=== PATIENT | male | born 1945 | race Caucasian/White ===

== ENCOUNTER 2021-11-02 18:57 | Emergency (ER) | payer MEDICARE, SELFPAY ==
[2021-11-02 19:25] VITALS: BP 139/65; PULSE 109; RESP 20; TEMP 36.6; O2SAT 99
--- NOTE | 2021-11-02 19:50 | ED.SKABFB ---
HPI - Skin/Abscess/Foreign Bdy General Chief complaint: Skin/Abscess/Foreign Body Stated complaint: cut on leg Source: patient Mode of arrival: ambulatory Limitations: no limitations History of Present Illness HPI narrative: this is a 76-year-old gentleman presents with laceration to the left lateral lower extremity approximately 4cm in length mildly gaping not up-to-date with his tetanus, currently there is no numbness or tingling to his leg has good range of motion no fever or chills. complaint: laceration Onset (ago): hour(s) Tetanus up to date: no Location: LLE Severity: mild Related Data Home Medications Medication Instructions Recorded Confirmed aspirin 81 mg tablet 81 mg PO DAILY 11/02/21 11/02/21 Allergies Allergy/AdvReac Type Severity Reaction Status Date / Time No Known Allergies Allergy Verified 11/02/21 19:29 Review of Systems Review of Systems: All systems reviewed & are unremarkable except as noted in HPI and below PMFSH Past Medical History Medical History Patient denies medical problems Exam Const: General: healthy appearing and no acute distress Limitations: no limitations HENMT: Head: normal to inspection Face and sinus: normal facial exam Eyes: Conjunctivae: conjunctivae normal Pupils: Equal, round and reactive pupils present Chest: Chest palpation & inspection: normal inspection of the chest Resp: Effort & Inspection: normal respiratory effort Auscultation: clear to auscultation bilaterally Cardio: Rate: regular rate Rhythm: regular rhythm GI: GI Palp: Yes Soft to palpation Auscultation: normal bowel sounds Skin: General skin exam: normal color Wounds: wounds noted Neuro: General: patient oriented x3 and moves all extremities Extrem: General: normal to inspection Psych: Mental Status: mental status grossly normal Course Course Emergency Course: patient with laceration left lateral lower leg 4 titi placed and the area currently is a well-approximated not bleeding and patient updated with his tetanus. Vital Signs Vital signs: Vital Signs Temperature 36.6 C 11/02/21 19:25 Pulse Rate 109 H 11/02/21 19:25 Respiratory Rate 20 11/02/21 19:25 Blood Pressure 139/65 11/02/21 19:25 Pulse Oximetry 99 11/02/21 19:25 Oxygen Delivery Room Air 11/02/21 19:25 Temperature 36.6 C 11/02/21 19:25 Pulse Rate 109 H 11/02/21 19:25 Respiratory Rate 20 11/02/21 19:25 Blood Pressure 139/65 11/02/21 19:25 Pulse Oximetry 99 11/02/21 19:25 Oxygen Delivery Room Air 11/02/21 19:25 Procedures Laceration Laceration 1: Date: 11/02/21 Time: 19:53 Site: lower extremity Side (If applicable): left Size (cm): 4 Description: linear Depth: simple, single layer Pre-repair: irrigated and irrigated extensively ====== Skin Level ====== Skin layer closed with: titi ====== Subcutaneous Layer ====== ====== Muscle Layer ====== ====== Tendon Layer ====== Critical Care Time Critical Care Time Critical Care Time: No Discharge Plan Discharge Clinical Impression: Laceration Patient Disposition: Home, Self-Care Condition: Stable Instructions: Antibiotic Form, Laceration (ED) Additional Instructions: place Neosporin on affected area daily x3 days, and follow up with primary care physician in 1 week for staple removal. Prescriptions: No Action Adult Aspirin 81 mg Tablet 81 mg PO DAILY Follow-up/Referrals: Guanakito,Joe David MD [Primary Care Provider] - Time of Disposition: 19:54
[2021-11-02] MEDS: TETANUS,DIPHTHERIA,AC PERTUSSIS ADULT 0.5 ML (ADACEL) IM (19:54)
[2021-11-02 20:00] VITALS: BP 121/64; PULSE 89; RESP 16; O2SAT 97
--- NOTE | 2021-11-02 20:01 | PC.NURSE ---
staple site covered with triple antibiotic, non adheart dressing and wrapped in coban per
== END 2021-11-02 20:01 | disposition home or self-care (01) ==
PROVIDERS: Emergency Provider Emergency Medicine; PCP Internal Medicine
DX: S81.812A Laceration without foreign body, left lower leg, initial encounter (principal); W45.8XXA Other foreign body or object entering through skin, initial encounter
CPT/HCPCS: 12002; 90471; 90715; 99282

== ENCOUNTER 2024-08-12 04:11 | Observation (INO) | payer MEDICARE, BC, SELFPAY ==
[2024-08-12] VITALS (22 sets, daily range): BP systolic 122–165; BP diastolic 80–113; PULSE 79–98; RESP 14–24; TEMP 36.2–36.6; O2SAT 92–100; BMI 36.2
--- NOTE | ~2024-08-12 | CT_ITS ---
CT Scan of the Chest without Contrast: Clinical Indication: Shortness of breath Technique: Contiguous sections were acquired throughout the chest without intravenous contrast. Dose reduction technique was used on this scan by utilizing automated exposure control and iterative recon struction technique. The dose-length product (DLP) was 846.49 mGy-cm. Findings: There is no evidence of any significant mediastinal, hilar or axillary lymphadenopathy. Extensive cor onary artery calcifications are present. Minimal pericardial fluid noted. No pleural effusions. Several scattered calcified granulomas are present. There is chronic scarring or atelectasis at the l ing[place]. Moderate emphysema. Images through the upper abdomen reveal left adrenal adenoma. Lipoma is present subjacent to the left scapula. Degenerative spondylosis of the spine noted. Impression: Moderate emphysema. Chronic scarring or atelectasis at the lingula.. Minimal pericardial fluid. Reviewed, dictated and finalized at [facility]. Impression: Moderate emphysema. Chronic scarring or atelectasis at the lingula.. Minimal pericardial fluid.
--- NOTE | ~2024-08-12 | XR_ITS ---
Portable chest x-ray Comparison: None Clinical History: Shortness of breath Findings: Lungs are clear, without focal consolidation or pleural effusion. Cardiomediastinal silho uette is mildly prominent, possibly due to AP technique. Bones and soft tissues are unremarkable. Impression: Clear lungs. Reviewed, dictated and finalized at location . Impression: Clear lungs.
--- OUTSIDE RECORDS SUMMARY | 2024-08-12 04:13 | XMS_ITS | Encounter Summary ---
Author Organization [facility] Address [address] [place] [address] Phone Care Team Providers Care Marine Specialist Name Role Phone Joe Calabrese MD Primary Care Provider [phone] Danae Roberts October PAC Unavailable [phone] Babak Taveras MD Unavailable [phone] Ellen Taveras CORPORATE LEGAL ASSISTANT, QUALITY CONTROLLER Unavailable + [phone] Haider Jimenez MD Unavailable [phone] Ellen Taveras CORPORATE LEGAL ASSISTANT, QUALITY CONTROLLER Unavailable + [phone] Encounter Details Date Type Department Care Team (Late st Contact Info) Description 06/25/2024 Results Follow-Up [facility] - Internal Medicine [facility] [address] [place] [address] Joe Calabrese MD [address] [facility] [place] [place] [address] Social History Tobacco Use Types Packs/Day Years Used Date Smoking Tobacco: Former Cigarettes 2 30 0 10/17/1969 - 10/18/1999 Passive Smoke Exposure: Past Smokeless Tobacco: Never Alcohol Use Standard Drinks/Week Comments Not Currently 0 (1 standard drink = 0.6 oz pur e alcohol) [facility] Utilities Answer Date Recorded In the past 12 months has [employer] electric, gas, oil, or water company threatened to shut off services in your home? No 02/13/2024 Social Connection and Isolation Panel [NHANES] A nswer Date Recorded In a typical week, how many times do you talk on the phone with family, friends, or neighbors? Once a week 02/13/2024 How often do you get together with friends or re latives? Once a week 02/13/2024 Attends Jain Services Not on file 02/12 Active Member of Clubs or Organizations Not on f ile 02/13/2024 Attends Club or Organization Meetings Not on pattie e 02/13/2024 Marital Status Not on file 02/13/2024 AUDIT-C Answer Date Recorded Q1: How often do you have a drink containing alcohol? Never 02/13/2024 Q2: How many drinks containi ng alcohol do you have on a typical day when you are drinking? Patient does not drink Frequency of Binge Drinking Not on file 07/2023 Overall Financial Resource Strain (CARDIA) Answe r Date Recorded How hard is it for you to pa y for the very basics like food, housing, medical care, and heating? Not very hard 02/13/2024 PHQ-2 Answer Date Recorded Total Score - Questions 1-9 0 01/2025 [facility] of Occupat ional Health - Occupational Stress Questionnaire Answer Date Recorded Do you feel stress - tense, restless, nervous, or anxious, or unable to sleep at night because your mind is troubled all the time - these days? Only a little 02/13/2024 Exercise Vital Sign Answer Date Recorde d On average, how many days pe r week do you engage in moderate to strenuous exercise (like a brisk walk)? 1 day 02/13/2024 On average, how many minutes do you engage in exercise at this level? 10 min 02/13/2024 Hunger Vital Sign Answer Date Recorded Within the past 12 months, y ou worried that your food would run out before you got the money to buy more. Never true 02/13/20 24 Within the past 12 months, t he food you bought just didn't last and you didn't have money to get more. Never true 02/13/2024 PRAPARE - Transportation Answer Date Re corded In the past 12 months, has l ack of transportation kept you from medical appointments or from getting medications? No 07/2023 In the past 12 months, has l ack of transportation kept you from meetings, work, or from getting things needed for daily living? No 02/13/2024 Housing Stability Vital Sign Answer Robert e Recorded In the last 12 months, was t here a time when you were not able to pay the mortgage or rent on time? No 07/25/2023 In the last 12 months, how many places have you lived? 2 07/25/2023 In the last 12 months, was t here a time when you did not have a steady place to sleep or slept in a fdc (including now)? No 07/25/2023 Housing Stability Vital Sign Answer Robert e Recorded In the last 12 months, was t here a time when you were not able to pay the mortgage or rent on time? No 02/13/2024 Number of Times Moved in the Last Year Not on fi le 02/13/2024 At any time in the past 12 m ont, were you homeless or living in a fdc (including now)? No 02/13/2024 Sexually Active Control Partners Comments Not Currently Sex and Gender Information Value Date Recorded Sex Assigned at Not on file Legal Sex Male 10:00 PM CDT Gender Identity Not on file Sexual Orientation Not on file documented as of this encounter Plan of Treatment Upcoming Encounters Date Type Department Care Team (Late st Contact Info) Description 08/20/2024 2:45 PM CDT Office Visit [facility] - Internal Medicine [facility] [address] [place] [address] Joe Calabrese MD [address] [place] [address] 09/08/2024 1:30 PM CDT Office [facility] - Cardiology - [place] [address] [place] [id number] Ellen Taveras APRN, QUALITY CONTROLLER [address]2 [facility], [address] [place] [address] documented as of this encounter Visit Diagnoses Not on filedocumented in this encounter Additional Health Concerns Assessment Noted Time PHQ-9 Depression Total Score: 0 05/21/19 25 1:34 PM TABLE RUNNER documented as of this encounter Care Teams Marine Specialist Relationship Specialty Start Date End Date Joe Calabrese MD [address] [place] [address] PCP - General Internal Medicine 04/22/15 Danae Roberts [facility] [address] [facility] [place] [address] Physician Telegraph Service Clerk Physician Telegraph Service Clerk 09/04/21 Babak Taveras MD #[address] [address] Consulting Physician Interventional Cardiology 03/01/23 Ellen Taveras APRN, QUALITY CONTROLLER #2 [facility], [address] [address] Inspector Balance Bridge Advanced Practice Nurse 03/14/23 Haider Jimenez MD [address] [place] [address] Consulting Physician Gastroenterology 06/21/22 Ellen Taveras APRN, QUALITY CONTROLLER #2 [facility], [address] [address] Nurse Practitioner Cardiology 12/31/23 documented as of this encounter
--- OUTSIDE RECORDS SUMMARY | 2024-08-12 04:13 | XMS_ITS | Encounter Summary ---
Author Organization [facility] Address [address] [place] [address] Phone Care Team Providers Care Crane Chaser Name Role Phone Joe Calabrese MD Primary Care Provider [phone] Danae Roberts October PAC Unavailable [phone] Gonzalo Villalpando MD Unavailable Babak Powers MD Unavailable [phone] Ellen Taveras APRN, ENTRY LEVEL ELECTRICIAN Unavailable + [phone] Haider Jimenez MD Unavailable [phone] Ellen Taveras APRN, ENTRY LEVEL ELECTRICIAN Unavailable + [phone] Reason for Visit * Reason Comments Medication Refill Encounter Details Date Type Department Care Team (Late st Contact Info) Description 04/17/2020 Refill [facility] - Internal Medicine [facility] [address] [place] [address] Joe Calabrese MD [address] [facility] [place] [address] Medication Refill Social History Tobacco Use Types Packs/Day Years Used Date Smoking Tobacco: Former Cigarettes Q uit: 10/18/1999 Smokeless Tobacco: Never PHQ-2 Answer Date Recorded PHQ-2 Score 0 02/17/2020 Sex and Gender Information Value Date Recorded Sex Assigned at Not on file Legal Sex Male 10:00 PM CDT Gender Identity Not on file Sexual Orientation Not on file documented as of this encounter Miscellaneous Notes * Telephone Encounter - Gissel Roberson RN - 04/18/2020 7:36 AM CST Please review and sign. EY PARTY CHIEF documented in this encounter Plan of Treatment Upcoming Encounters Date Type Department Care Team (Late st Contact Info) Description 08/20/2024 2:45 PM CDT Office Visit [facility] Medical [facility] - Internal Medicine [place] [address] [place] [address] Joe Calabrese MD [address] [place] [address] 09/08/2024 1:30 PM CDT Office Visit [facility] - Cardiology - [place] [address] [place] [address] Ellen Taveras APRN, ENTRY LEVEL ELECTRICIAN #2 [facility], [address] [place] [address] documented as of this encounter Visit Diagnoses Not on filedocumented in this encounter Additional Health Concerns Assessment Noted Time PHQ-9 Depression Total Score: 0 02/17/20 20 11:00 AM CDT documented as of this encounter Care Teams Crane Chaser Relationship Specialty Start Date End Date Joe Calabrese MD [address] [place] [address] PCP - General Internal Medicine 04/22/15 Danae Roberts, XIOMARA [address] [place] [address] Physician Freedom Of Information Officer Physician Freedom Of Information Officer 09/04/21 Gonzalo Villalpando MD [address] [place] [address] Consulting Physician Cardiovascular Disease - Cardiology 02/19/23 04/19/24 Babak Taveras MD #2 [facility] [address] [place] [address] Consulting Physician Interventional Cardiology 03/01/23 Ellen Taveras APRN, ENTRY LEVEL ELECTRICIAN #2 [facility], [address] [place] [address] Crown Blocker Advanced Practice Nurse 03/14/23 Haider Jimenez MD [address] [place] [address] Consulting Physician Gastroenterology 06/21/22 Ellen Taveras APRN, ENTRY LEVEL ELECTRICIAN #2 [facility], [address] [place] [address] Nurse Practitioner Cardiology 12/31/23 documented as of this encounter
--- OUTSIDE RECORDS SUMMARY | 2024-08-12 04:13 | XMS_ITS | Encounter Summary ---
Author Organization [facility] Address [address] [place] [address] Phone Care Team Providers Care Water Filter Cleaner Name Role Phone Joe Calabrese MD Primary Care Provider [phone] Danae Roberts October PAC Unavailable [phone] Gonzalo Villalpando MD Unavailable Babka Powers MD Unavailable [phone] Ellen Taveras APRN, DIRT SHOVELER Unavailable + [phone] Haider Jimenez MD Unavailable [phone] Ellen Taveras APRN, DIRT SHOVELER Unavailable + [phone] Reason for Visit * Reason Comments Medication Refill Encounter Details Date Type Department Care Team (Late st Contact Info) Description 08/11/2020 Refill [facility] - Internal Medicine - [place] [address] [place] [address] Joe Calabrese MD [address] [facility] [address] Medication Refill Social History Tobacco Use Types Packs/Day Years Used Date Smoking Tobacco: Former Cigarettes Q uit: 10/18/1999 Smokeless Tobacco: Never PHQ-2 Answer Date Recorded Total Score - Questions 1-9 0 10/2020 Sex and Gender Information Value Date Recorded Sex Assigned at Not on file Legal Sex Male 10:00 PM CDT Gender Identity Not on file Sexual Orientation Not on file COVID-19 Exposure Response Date Recorded In the last month, have you been in contact with someone who was confirmed or suspected to have Coronavirus / COVID-19? No / Unsure 08/10/2020 10:52 AM CDT documented as of this encounter Plan of Treatment Upcoming Encounters Date Type Department Care Team (Late st Contact Info) Description 08/20/2024 2:45 PM CDT Office Visit [facility] - Internal Medicine [place] [address] [place] [address] Joe Calabrese MD [address] [place] [address] 09/08/2024 1:30 PM CDT Office Visit [facility] - Cardiology - [place] [address] [place] [address] Ellen Taveras APRN, DIRT SHOVELER #2 [facility], [address] [place] [address] documented as of this encounter Visit Diagnoses Not on filedocumented in this encounter Additional Health Concerns Assessment Noted Time PHQ-9 Depression Total Score: 0 05/18/19 21 10:00 AM CASING RUNNING MACHINE TENDER documented as of this encounter Care Teams Water Filter Cleaner Relationship Specialty Start Date End Date Joe Calabrese MD [address] [place] [address] PCP - General Internal Medicine 04/22/15 Danae Roberts Angella, PAC [address] [place] [address] Physician Commander Internal Affairs Physician Commander Internal Affairs 09/04/21 Gonzalo Villalpando MD [address] [place] [address] Consulting Physician Cardiovascular Disease - Cardiology 02/19/23 04/19/24 Babak Taveras MD #2 [facility] [address] [place] [address] Consulting Physician Interventional Cardiology 03/01/23 Ellen Taveras APRN, DIRT SHOVELER #2 [facility], [address] [place] [address] Diversional Therapist Advanced Practice Nurse 03/14/23 Haider Jimenez MD [address] [place] [address] Consulting Physician Gastroenterology 06/21/22 Ellen Taveras APRN, DIRT SHOVELER #2 [facility], [address] [place] [address] Nurse Practitioner Cardiology 12/31/23 documented as of this encounter
--- OUTSIDE RECORDS SUMMARY | 2024-08-12 04:13 | XMS_ITS | Encounter Summary ---
Author Organization [facility] Address [address] [place] [address] Phone Care Team Providers Care Gas Utility Worker Name Role Phone Joe Calabrese MD Primary Care Provider [phone] Armando Danae October PAC Unavailable [phone] Gonzalo Villalpando MD Unavailable Babak Powers MD Unavailable [phone] Ellen Taveras APRN, DISTRICT COMMERCIAL SUPERINTENDENT Unavailable + [phone] Haider Jimenez MD Unavailable [phone] Ellen Taveras APRN, DISTRICT COMMERCIAL SUPERINTENDENT Unavailable + [phone] Reason for Visit * Reason Comments Medication Refill Encounter Details Date Type Department Care Team ([facility] st Contact Info) Description 02/23/2023 Refill [facility] - Internal Medicine - [place] [address] [place] [address] Joe Calabrese MD [address] [facility] [place] [address] Medication Refill Social History Tobacco Use Types Packs/Day Years Used Date Smoking Tobacco: Former Cigarettes 2 30 0 10/17/1969 - 10/18/1999 Passive Smoke Exposure: Past Smokeless Tobacco: Never Alcohol Use Standard Drinks/Week Comments Not Currently 0 (1 standard drink = 0.6 oz pur e alcohol) PHQ-2 Answer Date Recorded Total Score - Questions 1-9 0 06/13 Sexually Active Control Partners Comments Not Currently Sex and Gender Information Value Date Recorded Sex Assigned at Not on file Legal Sex Male 10:00 PM CDT Gender Identity Not on file Sexual Orientation Not on file COVID-19 Exposure Response Date Recorded In the last 10 days, have yo u been in contact with someone who was confirmed or suspected to have Coronavirus/COVID-19? No / Unsure 01/24/2023 1:44 PM CDT documented as of this encounter Miscellaneous Notes * Telephone Encounter - Niesha Ruby RN - 02/25/2023 8:37 AM CDT Medication failed the protocol, provider to review and approve the medication order if appropriate. Requested Prescriptions Pending Prescriptions Disp Refills gabapentin (NEURONTIN) 300 MG Capsule [Pharmacy Med Name: GABAPENTIN CAPS 300MG] 360 Capsule 3 Sig: TAKE 1 CAPSULE FOUR TIMES A DAY Not Delegated - Anticonvulsants Excluding Benzodiazepines Protocol Failed - 02/23/2023 10:33 AM Failed - This refill cannot be delegated Passed - Visit with relevant provider in past 12 months or upcoming 90 days Recent Visits Date Type Provider Dept 01/24/23 Office Visit Joe Calabrese MD [facility] 10/18/22 Office Visit Joe Calabrese MD [facility] 07/12/22 Office Visit Joe Calabrese MD [facility] [place] 04/11/22 Office Visit Joe Calabrese MD [facility] [place] [facility] recent visits within past 365 days and meeting all other requirements Future Appointments Date Type Provider Dept 04/25/23 Appointment Joe Calabrese MD [facility] [place] [facility] future appointments within next 90 days and meeting all other requirements documented in this encounter Plan of Treatment Upcoming Encounters Date Type Department Care Team (Late st Contact Info) Description 08/20/2024 2:45 PM CDT Office Visit [facility] - Internal Medicine - [place] [address] [place] [address] Joe Calabrese MD [address] [place] [address] 09/08/2024 1:30 PM CDT Office Visit [facility] - Cardiology [facility] [address] [place] [address] Ellen Taveras APRN, DISTRICT COMMERCIAL SUPERINTENDENT #2 [facility], [address] [place] [address] documented as of this encounter Visit Diagnoses Not on filedocumented in this encounter Additional Health Concerns Assessment Noted Time PHQ-9 Depression Total Score: 0 05/18/19 21 10:00 AM MACHINE ADJUSTER LEADER CASE TRIM documented as of this encounter Care Teams Gas Utility Worker Relationship Specialty Start Date End Date Joe Calabrese MD [address] [place] [address] PCP - General Internal Medicine 04/22/15 [facility] [address] [place] [address] Physician Strawhat Blocking Operator Physician Strawhat Blocking Operator 09/04/21 Gonzalo Villalpando MD [address] [place] [address] Consulting Physician Cardiovascular Disease - Cardiology 02/19/23 04/19/24 Babak Taveras MD #2 [facility] [address] [place] [address] Consulting Physician Interventional Cardiology 03/01/23 Ellen Taveras APRN, DISTRICT COMMERCIAL SUPERINTENDENT #2 [facility] [place] [facility], [address] [address] Road Freight Conductor Advanced Practice Nurse 03/14/23 Haider Jimenez MD #[address] [place] [address] Consulting Physician Gastroenterology 06/21/22 Ellen Taveras APRN, DISTRICT COMMERCIAL SUPERINTENDENT #[address] [facility], [address] [place] [address] Nurse Practitioner Cardiology 12/31/23 documented as of this encounter
--- OUTSIDE RECORDS SUMMARY | 2024-08-12 04:13 | XMS_ITS | Encounter Summary ---
Author Organization [facility] Address [address] [place] [address] Phone Care Team Providers Care Block Cuber Name Role Phone Joe Calabrese MD Primary Care Provider [phone] Armando Danae October PAC Unavailable [phone] Gonzalo Villalpando MD Unavailable Babak Powers MD Unavailable [phone] Ellen Taveras APRN, RAZOR GRINDER Unavailable + [phone] Haider Jimenez MD Unavailable [phone] Ellen Taveras APRN, RAZOR GRINDER Unavailable + [phone] Reason for Visit * Reason Comments Medication Refill Encounter Details Date Type Department Care Team (Late st Contact Info) Description 09/09/2023 Refill [facility] Group - Internal Medicine - [place] [address] [place] [id number] Joe Calabrese MD [address] [place] [address] Medication Refill Social History Tobacco Use Types Packs/Day Years Used Date Smoking Tobacco: Former Cigarettes 2 30 0 10/17/1969 - 10/18/1999 Passive Smoke Exposure: Past Smokeless Tobacco: Never Alcohol Use Standard Drinks/Week Comments Not Currently 0 (1 standard drink = 0.6 oz pur e alcohol) [facility] Utilities Answer Date Recorded In the past 12 months has [employer], gas, oil, or water company threatened to shut off services in your home? No 07/25/2023 Social Connection and Isolat ion Panel [NHANES] Answer Date Recorded In a typical week, how many times do you talk on the phone with family, friends, or neighbors? More than three times a week 07/25/2023 How often do you get togethe r with friends or relatives? More than three times a week 07/25/2023 How often do you attend chur ch or adventism services? Never 07/25/2023 Do you belong to any clubs o r organizations such as cheondoism groups, unions, fraternal or athletic groups, or school groups? No 07/25/2023 How often do you attend meet ings of the clubs or organizations you belong to? Never 07/25/2023 Are you , , di vorced, , never , or living with a partner? 07/25/2023 AUDIT-C Answer Date Recorded Q1: How often do you have a drink containing alcohol? Never 07/25/2023 Q2: How many drinks containi ng alcohol do you have on a typical day when you are drinking? Patient does not drink Q3: How often do you have si x or more drinks on one occasion? Never 07/25/2023 Overall Financial Resource Strain (CARDIA) Answe r Date Recorded How hard is it for you to pa y for the very basics like food, housing, medical care, and heating? Not hard at all 07/25/2023 PHQ-2 Answer Date Recorded Total Score - Questions 1-9 0 07/11 [facility]ational Stress Questionnaire Answer Date Recorded Do you feel stress - tense, restless, nervous, or anxious, or unable to sleep at night because your mind is troubled all the time - these days? Not at all 07/25/2023 Exercise Vital Sign Answer Date Recorde d On average, how many days pe r week do you engage in moderate to strenuous exercise (like a brisk walk)? 0 days 07/25/2023 On average, how many minutes do you engage in exercise at this level? 0 min 07/25/2023 Hunger Vital Sign Answer Date Recorded Within the past 12 months, y ou worried that your food would run out before you got the money to buy more. Never true 07/25/19 24 Within the past 12 months, t he food you bought just didn't last and you didn't have money to get more. Never true 07/25/2023 PRAPARE - Transportation Answer Date Re corded In the past 12 months, has l ack of transportation kept you from medical appointments or from getting medications? No 07/11 In the past 12 months, has l ack of transportation kept you from meetings, work, or from getting things needed for daily living? No 07/25/2023 Housing Stability Vital Sign Answer [...] place to sleep or slept in a longterm (including now)? No 07/25/2023 Sexually Active Control Partners Comments Not Currently Sex and Gender Information Value Date Recorded Sex Assigned at Not on file Legal Sex Male 10:00 PM CDT Gender Identity Not on file Sexual Orientation Not on file documented as of this encounter Miscellaneous Notes * Telephone Encounter - Joe Calabrese MD - 09/10/2023 11:30 AM CDT Pt is on Omeprazole 40mg once a day * Telephone Encounter - Niesha Ruby RN - 09/10/2023 9:41 AM CDT Per nursing clinical judgement, provider to review and approve the medication(s) order(s) if appropriate. Requested Prescriptions Pending Prescriptions Disp Refills omeprazole (PriLOSEC) 20 MG CAPSULE DELAYED RELEASE [Pharmacy Med Name: OMEPRAZOLE DR CAPS 20MG] 180 Capsule 3 Sig: TAKE 1 CAPSULE IN THE MORNING AND AT BEDTIME (DOSE CHANGE) Proton Pump Inhibitors Protocol Passed - 09/09/2023 4:26 PM Passed - Visit with relevant provider in past 12 months or upcoming 90 days Recent Visits Date Type Provider Dept 07/25/23 Office Visit Joe Calabrese MD [facility] [place] 04/25/23 Office Visit Joe Calabrese MD [facility] [place] 01/24/23 Office Visit Joe Calabrese MD [facility] [place] 10/18/22 Office Visit Joe Calabrese MD [facility] [place] Showing recent visits within past 365 days and meeting all other requirements Future Appointments Date Type Provider Dept 10/31/23 Appointment Joe Calabrese MD [facility] [place] Showing future appointments within next 90 days and meeting all other requirements documented in this encounter Plan of Treatment Upcoming Encounters Date Type Department Care Team (Late st Contact Info) Description 08/20/2024 2:45 PM CDT Office Visit [facility] - Internal Medicine [facility] [address] [place] [address] Joe Calabrese MD [address] [place] [address] 09/08/2024 1:30 PM CDT Office Visit [facility] Medical [facility] - Cardiology [facility] [address] [place] [address] Ellen Taveras APRN, RAZOR GRINDER [address]2 [facility], [address] [place] [address] documented as of this encounter Visit Diagnoses Not on filedocumented in this encounter Additional Health Concerns Assessment Noted Time PHQ-9 Depression Total Score: 0 07/25/19 1:49 PM CDT documented as of this encounter Care Teams Block Cuber Relationship Specialty Start Date End Date Joe Calabrese MD [address] [place] [address] PCP - General Internal Medicine 04/22/15 Danae Roberts Angella, [facility] [address] [address] Physician Religious Assistant Physician Religious Assistant 09/04/21 Gonzalo Villalpando MD [address] [place] [address] Consulting Physician Cardiovascular Disease - Cardiology 02/19/23 04/19/24 Babak Taveras MD #2 [facility] [address] [place] [address] Consulting Physician Interventional Cardiology 03/01/23 Ellen Taveras APRN, RAZOR GRINDER #2 [facility] [address] [place] [address] Tool Supervisor Advanced Practice Nurse 03/14/23 Haider Jimenez MD [address] [place] [address] Consulting Physician Gastroenterology 06/21/22 Ellen Taveras APRN, RAZOR GRINDER #2 [facility], [address] [place] [address] Nurse Practitioner Cardiology 12/31/23 documented as of this encounter
--- OUTSIDE RECORDS SUMMARY | 2024-08-12 04:13 | XMS_ITS | Encounter Summary ---
Author Organization [facility] Address [address] [place] [address] Phone Care Team Providers Care Business Services Intern Name Role Phone Joe Calabrese MD Primary Care Provider [phone] Danae Roberts October PAC Unavailable [phone] Gonzalo Villalpando MD Unavailable Babak Powers MD Unavailable [phone] Ellen Taveras APRN, CARGO ROUTER Unavailable + [phone] Haider Jimenez MD Unavailable [phone] Ellen Taveras APRN, CARGO ROUTER Unavailable + [phone] Reason for Visit * Reason Comments Medication Refill Encounter Details Date Type Department Care Team ([facility] st Contact Info) Description 02/16/2020 Refill [facility] Medical Group - Internal Medicine - [place] [address] [place] [phone] Joe Calabrese MD [address] [facility] [place] [address] Medication Refill Social History Tobacco Use Types Packs/Day Years Used Date Smoking Tobacco: Never Assessed PHQ-2 Answer Date Recorded PHQ-2 Score 0 [...] have Coronavirus / COVID-19? No / Unsure 02/17/2020 10:54 AM CDT documented as of this encounter Miscellaneous Notes * Telephone Encounter - Jannette Mancini RN - 02/17/2020 8:48 AM CDT Pended Rx request to PCP. documented in this encounter Plan of Treatment Upcoming Encounters Date Type Department Care Team (Late st Contact Info) Description 08/20/2024 2:45 PM CDT Office Visit [facility] Medical [facility] - Internal Medicine [facility] [address] [place] [id number] Joe Calabrese MD [address] [place] [address] 09/08/2024 1:30 PM CDT Office Visit [facility] Medical [facility] - Cardiology - [place] [address] [place] [address] Ellen Taveras APRN, CARGO ROUTER [address]2 [facility] [address] [place] [address] documented as of this encounter Visit Diagnoses Not on filedocumented in this encounter Care Teams Business Services Intern Relationship Specialty Start Date End Date Joe Calabrese MD [address] [place] [address] PCP - General Internal Medicine 04/22/15 Danae Roberts Angella, PAC [address] [place] [address] Physician Level Glass Vial Filler Physician Level Glass Vial Filler 09/04/21 Gonzalo Villalpando MD [address] [place] [address] Consulting Physician Cardiovascular Disease - Cardiology 02/19/23 04/19/24 Babak Taveras MD [address] [facility] [address] [place] [address] Consulting Physician Interventional Cardiology 03/01/23 Ellen Taveras APRN, CARGO ROUTER [address]2 [facility], [address] [place] [address] Agriculture Consultant Advanced Practice Nurse 03/14/23 Haider Jimenez MD [address] [place] [address] Consulting Physician Gastroenterology 06/21/22 Ellen Taveras APRN, CARGO ROUTER [address]2 [facility], [address] [place] [address] Nurse Practitioner Cardiology 12/31/23 documented as of this encounter
--- OUTSIDE RECORDS SUMMARY | 2024-08-12 04:13 | XMS_ITS | Encounter Summary ---
Author Organization [facility] Address [address] [place] [address] Phone Care Team Providers Care Early Education Teacher Name Role Phone Joe Calabrese MD Primary Care Provider [phone] Armando Danae October PAC Unavailable [phone] Gonzalo Villalpando MD Unavailable Babak Powers MD Unavailable [phone] Ellen Taveras APRN, PROFILE STITCHING MACHINE OPERATOR Unavailable + [phone] Haider Jimenez MD Unavailable [phone] Ellen Taveras APRN, PROFILE STITCHING MACHINE OPERATOR Unavailable + [phone] Reason for Visit * Reason Comments Medication Refill Encounter Details Date Type Department Care Team ([facility] st Contact Info) Description 02/28/2021 Refill [facility] Medical Group - Internal Medicine - [place] [address] [place] [address] Joe Calabrese MD [address] [place] [address] Medication Refill Social History Tobacco Use Types Packs/Day Years Used Date Smoking Tobacco: Former Cigarettes 2 30 0 10/17/1969 - 10/18/1999 Smokeless Tobacco: Never Alcohol Use Standard Drinks/Week Comments Not Currently 0 (1 standard drink = 0.6 oz pur e alcohol) PHQ-2 Answer Date Recorded Total Score - Questions 1-9 0 10/2020 Sexually Active Control Partners Comments Not Currently Sex and Gender Information Value Date Recorded Sex Assigned at Not on file Legal Sex Male 10:00 PM CDT Gender Identity Not on file Sexual Orientation Not on file documented as of this encounter Plan of Treatment Upcoming Encounters Date Type Department Care Team (Late st Contact Info) Description 08/20/2024 2:45 PM CDT Office Visit [facility] Medical Group - Internal Medicine [place] [address] [place] [address] Joe Calabrese MD [address] [place] [address] 09/08/2024 1:30 PM CDT Office Visit [facility] Cardiology [facility] [address] [place] [address] Ellen Taveras APRN, PROFILE STITCHING MACHINE OPERATOR #2 [facility] [address] [place] [address] documented as of this encounter Visit Diagnoses Not on filedocumented in this encounter Additional Health Concerns Assessment Noted Time PHQ-9 Depression Total Score: 0 05/18/19 21 10:00 AM FLOOR TECHNICIAN documented as of this encounter Care Teams Early Education Teacher Relationship Specialty Start Date End Date Joe Calabrese MD [address] [place] [address] PCP - General Internal Medicine 04/22/15 Danae Roberts Angella, [facility] [address] [place] [address] Physician Industrial Sewer Physician Industrial Sewer 09/04/21 Gonzalo Villalpando MD [address] [place] [address] Consulting Physician Cardiovascular Disease - Cardiology 02/19/23 04/19/24 Babak Taveras MD #2 [facility] [address] [place] [address] Consulting Physician Interventional Cardiology 03/01/23 Ellen Taveras APRN, PROFILE STITCHING MACHINE OPERATOR #2 [facility], [address] [place] [address] Roving Sizer Advanced Practice Nurse 03/14/23 Haider Jimenez MD [address] [place] [address] Consulting Physician Gastroenterology 06/21/22 Ellen Taveras APRN, PROFILE STITCHING MACHINE OPERATOR #2 [facility], [address] [place] [address] Nurse Practitioner Cardiology 12/31/23 documented as of this encounter
--- OUTSIDE RECORDS SUMMARY | 2024-08-12 04:13 | XMS_ITS | Clinical Summary ---
Author Organization [facility] Address [address] [place] [address] Phone Care Team Providers Care Contract Project Manager Name Role Phone Joe Calabrese MD Primary Care Provider Danae Roberts October PAC Unavailable [phone] Babak Taveras MD Unavailable [phone] Ellen Taveras PLASTIC FINISHER, FLIGHT LINE MECHANIC Unavailable + [phone] Haider Jimenez MD Unavailable [phone] Ellen Taveras PLASTIC FINISHER, FLIGHT LINE MECHANIC Unavailable + [phone] Allergies Active Allergy Reactions Criticality Noted Date Comments Duloxetine Rash 06/08/2019 Cymbalta Medications Multiple Vitamin (MULTI-VITAMIN PO) Take by mouth daily. Active sucralfate (CARAFATE) 1 GM/10ML Suspension 11/27/19 23 Active pravastatin (PRAVACHOL) 40 MG Tablet TAKE 1 TABLET NIGHTLY 90 Tablet 3 09/24/19 24 Active Contour Test StripIndications :Type 2 diabetes mellitus with complication, without long-term current use of insulin (HCC) Use once a day as directed. DX E11.9 Type 2 DM non insulin dep 100 Strip 5 10/31/19 24 Active apixaban (ELIQUIS) 5 MG TabletIndication s:Atrial Fibrillation Take 1 Tablet by mouth 2 times daily. Indications: Atrial Fibrillation 180 Tablet 3 01/07/20 24 Active tamsulosin (FLOMAX) 0.4 MG Capsule TAKE 1 CAPSULE DAILY 90 Capsule 3 02/17/20 24 Active gabapentin (NEURONTIN) 300 MG Capsule TAKE 1 CAPSULE FOUR TIMES A DAY 360 Capsule 3 03/04/20 24 Active omeprazole (PriLOSEC) 40 MG CAPSULE DELAYED RELEASE TAKE 1 CAPSULE DAILY IN THE MORNING 90 Capsule 3 03/09/20 24 Active carvedilol (COREG) 25 MG Tablet Take 25 mg by mouth 2 times daily. Active metFORMIN (GLUCOPHAGE) 1000 MG Tablet Take 500 mg by mouth daily after dinner. Active furosemide (LASIX) 20 MG Tablet Take 1 Tablet by mouth daily. 30 Tablet 3 05/21/19 25 Active albuterol 108 (90 Base) MCG/ACT Aerosol Solution TAKE 2 PUFFS BY MOUTH EVERY 6 HOURS NEEDED FOR WHEEZE 18 g 1 07/07/19 25 Active glipiZIDE (GLUCOTROL) 5 MG Tablet Take 0.5 Tablets by mouth daily after breakfast. 90 Tablet 07/29/19 25 Active glipiZIDE (GLUCOTROL) 5 MG Tablet Take 2.5 mg by mouth daily after breakfast. 025 Discontin ued(Reord er) Active Problems Problem Noted Date Diagnosed Date Chronic atrial fibrillation 07/25/2023 Peripheral arterial disease 01/24/2023 Little's esophagus with low grade dysplasia 12/2022 Adenocarcinoma of stomach 11/21/2021 Overview (11/21/2021): Intramucosal- Resection- 11/2021 BPH with obstruction/lower urinary tract symptom s 09/27/2021 Primary osteoarthritis of both knees 03/22/2021 NAFLD (nonalcoholic fatty liver disease) 021 Type 2 diabetes mellitus wit h complication, without long-term current use of insulin 12/14/2020 Diabetic polyneuropathy asso ciated with type 2 diabetes mellitus 12/14/2020 Smoking greater than 30 pack years 12/14/2020 Rectal varices 11/18/2020 Panlobular emphysema 08/17/2020 Fibromyalgia 05/18/2020 Mixed hyperlipidemia 07/16/2012 Essential (primary) hypertension 08/18/2010 Resolved Problems Problem Noted Date Diagnosed Date Resolved Date BMI 40.0-44.9, adult 06/28/2021 022 Encounters Date Type Department Care Team Description 07/28/2024 Refill [facility] - [place] [address] [place] [address] Joe Calabrese MD Medication Refill 07/07/2024 Refill [facility] [address] [place] [address] Joe Calabrese MD Medication Refill 06/25/2024 1:59 PM DIESEL POWERPLANT SUPERVISOR - 06/25/2024 11:59 PM DIESEL POWERPLANT SUPERVISOR Hospital Encounter [facility] [address] [place] [address] Joe Calabrese MD Discharge Disposition: Discharged to home or Selfcare 06/25/2024 Results Follow-Up [facility] [address] [place] [address] Joe Calabrese MD 06/25/2024 Travel 06/13/2024 Refill [facility] [address] [place] [address] Joe Calabrese MD Medication Refill 05/21/2024 2:00 PM DIESEL POWERPLANT SUPERVISOR Office Visit [facility] [address] [place] [address] Joe Calabrese MD SOB (shortness of breath) (Primary Dx); Essential (primary) hypertension; Chronic atrial fibrillation (HCC); Mixed hyperlipidemia; Type 2 diabetes mellitus with complication, without long-term current use of insulin (HCC); Diabetic polyneuropathy associated with type 2 diabetes mellitus (HCC); Panlobular emphysema (HCC) Discharge Disposition: Discharged to home or Selfcare 05/21/2024 Travel from Last 3 Months Immunizations Immunization Administration Dates Next Due Covid-19, Mrna, Lnp-s, PF, 1 00 mcg/0.5 mL Dose (Moderna) 09/07/2020,08/10/2020 Influenza Vaccine 02/19/2018 Influenza Vaccine, Quadrivalent, PF 03/22/2021,1 Influenza, Quadrivalent, Adjuvanted 01/24/2023,1 06/11/2021 Influenza, Trivalent, Adjuvanted, PF 02/13/2024 Pneumococcal Vaccine - 13 Valent 04/18/2011 Pneumococcal Vaccine Adult - 23 Valent 1 Family History Medical History Relation Name Comments No Known Problems Brother Cancer Father Brain tumor Cancer Mother ovary Cancer Sister colon Hypertension Sister Relation Name Status Comments Brother Alive Father Mother Sister Alive Social History Tobacco Use Types Packs/Day Years Used Date Smoking Tobacco: Former Cigarettes 2 30 0 10/17/1969 - 10/18/1999 Passive Smoke Exposure: Past Smokeless Tobacco: Never Tobacco Cessation:Counseling Given: No Alcohol Use Standard Drinks/Week Comments Not Currently 0 (1 standard drink = 0.6 oz pur e alcohol) [facility] Utilities Answer Date Recorded In the past 12 months has th e electric, gas, oil, or water company threatened [...] re latives? Once a week 02/13/2024 Attends [employer] Not on file 02/12 Active Member [...] Recorded Total Score - Questions 1-9 0 01/0 01/2025 [facility] [employer] - Occupational Stress [...] place to sleep or slept in a residential (including now)? No 07/25/2023 Housing Stability Vital Sign Answer Robert e Recorded In the last 12 months, was t here a time when you were not able to pay the mortgage or rent on time? No 02/13/2024 Number of Times Moved in the Last Year Not on fi le 02/13/2024 At any time in the past 12 m [facility], were you homeless or living in a residential (including now)? No 02/13/2024 Sexually Active Control Partners Comments Not Currently Sex and Gender Information Value Date Recorded Sex Assigned at Not on file Legal Sex Male 10:00 PM CDT Gender Identity Not on file Sexual Orientation Not on file Last Filed Vital Signs Vital Sign Reading Time Taken Comments Blood Pressure 128/64 05/21/2024 1:31 PM DIESEL POWERPLANT SUPERVISOR Pulse 96 05/21/2024 1:31 PM DIESEL POWERPLANT SUPERVISOR Temperature 36.8 C (98.3 F) 05/21/2024 1:31 PM DIESEL POWERPLANT SUPERVISOR Respiratory Rate 12 02/13/2024 2:03 PM CDT Oxygen Saturation 95% 05/21/2024 1:31 PM DIESEL POWERPLANT SUPERVISOR Inhaled Oxygen Concentration - - Weight 118.4 kg (261 lb) 06/25/2024 2:39 PM DIESEL POWERPLANT SUPERVISOR Height 185.4 cm (6' 1 ) 06/25/2024 2:39 PM DIESEL POWERPLANT SUPERVISOR Body Mass Index 34.43 06/25/2024 2:39 PM DIESEL POWERPLANT SUPERVISOR Plan of Treatment Upcoming Encounters Date Type Department Care Team (Late st Contact Info) Description 08/20/2024 2:45 PM CDT Office Visit [facility] - Internal Medicine [facility] [address] [place] [address] Joe Calabrese MD [address] [facility] [place] [address] 09/08/2024 1:30 PM CDT Office Visit [facility] - Cardiology - [place] [address] [place] [id number] Ellen Taveras APRN, FLIGHT LINE MECHANIC [address] [facility] [address] [place] [address] Health Maintenance Due Date Last Done Comments Zoster Immunization (1 of 2) 1964 SARS-COV-2 Immunization (3 - Moderna risk series) 10/05/2020 09/07/2020, 08/10/2020 Respiratory Syncytial Virus (RSV) Immunization (Adult) (1 - 1-dose 75+ series) 2022 Diabetes: Eye Exam 04/24/2024 04/24/2023, 04/22/2023 Diabetes: Hemoglobin A1c 08/13/2024 024, 07/25/2023, 11/07/2022, Additional history exists Diabetes: Nephropathy Screening 09/23/2024 09/24/2023, 11/07/2022, 05/09/2022, Additional history exists Diabetes: Foot Exam 01/21/2025 01/22/2024, Colonoscopy High Risk Discontinued 10/05/2020, 010 Colonoscopy Discontinued 10/05/2020, 08/16/2009 Colorectal Cancer Screening Discontinued AAA Screening Ultrasound Discontinued 10/31/2020 Hepatitis C Virus (HCV) Screening Completed 11/18/2020 Pneumococcal Immunization (50+ years) Completed 03/22/2021, 04/18/2011 Pneumococcal Immunization Combined Discontinued 03/22/2021, 04/18/2011 DTaP/Tdap/Td Immunization Discontinued 10/29/2023, TdaP Immunization Completed 10/29/2023, 11/02/2021 Influenza Immunization Completed , 01/24/2023, 04/11/2022, Additional history exists Cologuard Discontinued Hepatitis B Immunization Aged Out No longer eligible based on patient's age to complete this topic Immunochemical Fecal Occult Blood Discontinued Meningococcal Immunization (ACWY) Aged Out No longer eligible based on patient's age to complete this topic Rotavirus Immunization Aged Out No lo nger eligible based on patient's age to complete this topic Procedures Procedure Name Priority Date/Time Associated Diagnosis Comments ADULT TRANS THORACIC ECHO 2D COMPLT W CONT Routine 06/25/2024 2:57 PM DIESEL POWERPLANT SUPERVISOR SOB (shortness of breath) POCT GLYCOSYLATED HEMOGLOBIN Routine 02/13/2024 2:16 PM CDT Type 2 diabetes mellitus with complication, without long-term current use of insulin (HCC) CMP (COMPREHENSIVE METABOLIC PANEL) Routine 09/24/2023 12:39 PM CDT Type 2 diabetes mellitus with complication, without long-term current use of insulin (HCC) Essential (primary) hypertension Mixed hyperlipidemia DILATED EYE EXAM 04/24/2023 1 2:00 AM DIESEL POWERPLANT SUPERVISOR HEPATITIS PANEL ACUTE (AHP) Routine 11/18/2020 2:30 PM CDT Rectal varices Liver disease Nonalcoholic steatohepatitis (WOO) HM COLONOSCOPY Routine 08/16/2009 from Last 3 Months or Most Recently Relevant to Health Maintenance Results * ADULT TRANS THORACIC ECHO 2D COMPLT W CONT (06/25/2024 2:57 PM DIESEL POWERPLANT SUPERVISOR) AV Peak Grad mmHg 7.84 mmHg RESULTING AGENCY Mean Aortic Valve Gradient (MAVG) 4 mmHg RESULTING AGENCY LV end zackary diam cm 5 cm RESULTING AGENCY LV end sys diam cm 3.7 cm RESULTING AGENCY Aortic Root Diam cm 3.7 cm RESULTING AGENCY LVOT Peak Dann m/sec 0.604 m/sec RESULTING AGENCY AV Peak Dann m/sec 1.4 m/sec RESULTING AGENCY MVA by PHT cm2 3.79 cm2 RESUL TING AGENCY E/A Ratio 2.29 RESULTING AGENCY TR Dann m/sec 2.49 m/sec RESULTI NG AGENCY E/E' 5.4 RESULTING AGENCY AV Area (VTI) cm2 1.84 cm2 RESULTING AGENCY SEPTUM DIASTOLIC CM 1.3 cm RESULTING AGENCY PW DIASTOLIC CM 1.4 cm RESU LTING AGENCY LV EF(estimated)% 60 RESULTING AGENCY Anatomical Region Laterality Modality CARDIO N/A Ultrasound Narrative 06/25/2024 3:20 PM DIESEL POWERPLANT SUPERVISOR Transthoracic Echocardiography Report (TTE) Patient name KASIA GONSALVES JR. Berman 1945 Patient ID (I) [id number] Indications: Shortness of breath. Study Date06/25/2024 Technical quality: Limited visualization Limitation Reason: Body Habitus - Endomorphic (Overweight) Type of Study: TTE procedure: Adult Trans Thoracic Echo 2D Complete, Adult Trans Thoracic Echo 2D Complt W Cont. Priority:RoutineHR: 105 bpmBP: 138/75 mmHg Conclusions Summary This study was performed with the patient in an irregularly irregular rhythm. The left ventricle is normal in size. Wall thickness is normal. LV function is normal. There are no regional wall motion abnormalities. Ejection fraction 60%. Left atrium is severely enlarged. Calculated left atrial volume index 50 mL/m2. The interatrial septum shows lipomatous hypertrophy. No hemodynamically significant valvular abnormalities Findings Mitral Valve The mitral valve is normal. There is no evidence of mitral stenosis. There is no significant mitral regurgitation. Aortic Valve The aortic valve is trileaflet with normal leaflet excursion. There is no evidence of aortic valve stenosis. There is no significant aortic valve insufficiency. Tricuspid Valve The tricuspid valve is normal. There is no evidence of tricuspid stenosis. There is no significant tricuspid regurgitation. There is no evidence of pulmonary hypertension. Pulmonic Valve The pulmonic valve structure appears normal. There is no evidence of pulmonic stenosis. There is no significant pulmonic valve regurgitation. Left Atrium Left atrium is severely enlarged. Calculated left atrial volume index 50 mL/m2. Left Ventricle The left ventricle is normal in size. Wall thickness is normal. LV function is normal. There are no regional wall motion abnormalities. Ejection fraction 60%. Right Atrium The right atrium size is normal. Right Ventricle Normal right ventricular cavity size and normal systolic function. Pericardial Effusion The pericardium is normal. There is no pericardial effusion visualized. Pleural Effusion No pleural effusion noted. Miscellaneous The interatrial septum shows lipomatous hypertrophy. Valves Mitral Valve Area (PHT): 3.79 cm^2 Peak E-Wave: 0.74 m/s Deceleration Time: 197 msec Peak A-Wave: 0.32 m/s Peak Gradient: 2.21 mmHg P1/2t: 58 msec Tissue Doppler E' Velocity: 0.1 m/s E/E':5.4 E/A Ratio: 2.29 E/Lat E': 5.4 E/Med E':7.4 Aortic Valve Area (continuity): 1.84 cm^2 Mean Velocity: 0.93 m/s Area (VTI):1.95 cm^2 Mean Gradient: 4 mmHg Peak Velocity: 1.40 m/s AV VTI: 23.7 cm Peak Gradient: 7.84 mmHg Tricuspid Valve Peak E-Wave: 0.48 m/s Peak Gradient: 0.95 mmHg TR Velocity: 2.49 m/s TR Gradient: 24.8 mmHg Pulmonic Valve Peak Velocity: 0.95 m/s Mean Velocity: 0.61 m/s Peak Gradient: 3.65 mmHg Mean Gradient: 2 mmHg LVOT Peak Velocity: 0.60 m/s Mean Velocity: 0.42 m/s Peak Gradient: 1 mmHg Mean Gradient: 1 mmHg LVOT Diameter: 2.4 cm LVOT VTI: 10.2 cm Stroke Volume: 46 ml Stroke Volume Index: 19.09 ml/m^2 Structures Left Ventricle Diastolic Dimension: 5 cm Systolic Dimension: 3.7 cm Septum Diastolic: 1.3 cm PW Diastolic: 1.4 cm Systolic Length: 16.3 cm Diastolic Length: 28.1 cm CI: 2.01 l/min*m^2 EF Calculated: 54.95% CO: 4.84 l/min RWT: 0.56 LV EDV: 101 ml LV EDV Index: 42 m^2 FS: 26 % LV ESV: 45.5 ml LV Length: 7.62 cm LV ESV Index: 19 m^2 LVOT Diameter: 2.4 cm Right Ventricle Tissue Doppler RV S': 16 TAPSE: 1.77 cm Left Atrium LA Systolic Pressure: 8.69 mmHg LA Area: 21 cm^2 Right Atrium RA Area: 22.6 cm^2 Great Vessels Aorta Ascending Aorta: 3.9 cm Aorta Root:3.7 cm Ascending Aorta Index:1.62 cm/m^2 Contractility Score LV regional wall motion: (0-Not visualized 1-Normal 1'-Hyperkinesis 2-Hypokinesis 3-Akinesis 4-Dyskinesis 5-Aneurysm) Demographics Age 79 Gender Male Race Height 72.99 in. Weight 261.01 lbs. BMI (BSA) 34.44 kg/m^2 (2.41 m^2) Dermatology Nurse Practitioner Feroz Hawley Interpreting Darcy Ho Physician Felicity COX Physician Procedure Note Babak Taveras MD - 06/25/2024 Transthoracic Echocardiography Report (TTE) Patient name KASIA GONSALVES JR. GalanO.B. 1945 Patient ID (UPI) [id number] Indications: Shortness of breath. Study Date06/25/2024 Technical quality: Limited visualization Limitation Reason: Body Habitus - Endomorphic (Overweight) Type of Study: TTE procedure: Adult Trans Thoracic Echo 2D Complete, Adult Trans Thoracic Echo 2D Complt W Cont. Priority:RoutineHR: 105 bpmBP: 138/75 mmHg Conclusions Summary This study was performed with the patient in an irregularly irregular rhythm. The left ventricle is normal in size. Wall thickness is normal. LV function is normal. There are no regional wall motion abnormalities. Ejection fraction 60%. Left atrium is severely enlarged. Calculated left atrial volume index 50 mL/m2. The interatrial septum shows lipomatous hypertrophy. No hemodynamically significant valvular abnormalities Findings Mitral Valve The mitral valve is normal. There is no evidence of mitral stenosis. There is no significant mitral regurgitation. Aortic Valve The aortic valve is trileaflet with normal leaflet excursion. There is no evidence of aortic valve stenosis. There is no significant aortic valve insufficiency. Tricuspid Valve The tricuspid valve is normal. There is no evidence of tricuspid stenosis. There is no significant tricuspid regurgitation. There is no evidence of pulmonary hypertension. Pulmonic Valve The pulmonic valve structure appears normal. There is no evidence of pulmonic stenosis. There is no significant pulmonic valve regurgitation. Left Atrium Left atrium is severely enlarged. Calculated left atrial volume index 50 mL/m2. Left Ventricle The left ventricle is normal in size. Wall thickness is normal. LV function is normal. There are no regional wall motion abnormalities. Ejection fraction 60%. Right Atrium The right atrium size is normal. Right Ventricle Normal right ventricular cavity size and normal systolic function. Pericardial Effusion The pericardium is normal. There is no pericardial effusion visualized. Pleural Effusion No pleural effusion noted. Miscellaneous The interatrial septum shows lipomatous hypertrophy. Valves Mitral Valve Area (PHT): 3.79 cm^2 Peak E-Wave: 0.74 m/s Deceleration Time: 197 msec Peak A-Wave: 0.32 m/s Peak Gradient: 2.21 mmHg P1/2t: 58 msec Tissue Doppler E' Velocity: 0.1 m/s E/E':5.4 E/A Ratio: 2.29 E/Lat E': 5.4 E/Med E':7.4 Aortic Valve Area (continuity): 1.84 cm^2 Mean Velocity: 0.93 m/s Area (VTI):1.95 cm^2 Mean Gradient: 4 mmHg Peak Velocity: 1.40 m/s AV VTI: 23.7 cm Peak Gradient: 7.84 mmHg Tricuspid Valve Peak E-Wave: 0.48 m/s Peak Gradient: 0.95 mmHg TR Velocity: 2.49 m/s TR Gradient: 24.8 mmHg Pulmonic Valve Peak Velocity: 0.95 m/s Mean Velocity: 0.61 m/s Peak Gradient: 3.65 mmHg Mean Gradient: 2 mmHg LVOT Peak Velocity: 0.60 m/s Mean Velocity: 0.42 m/s Peak Gradient: 1 mmHg Mean Gradient: 1 mmHg LVOT Diameter: 2.4 cm LVOT VTI: 10.2 cm Stroke Volume: 46 ml Stroke Volume Index: 19.09 ml/m^2 Structures Left Ventricle Diastolic Dimension: 5 cm Systolic Dimension: 3.7 cm Septum Diastolic: 1.3 cm PW Diastolic: 1.4 cm Systolic Length: 16.3 cm Diastolic Length: 28.1 cm CI: 2.01 l/min*m^2 EF Calculated: 54.95% CO: 4.84 l/min RWT: 0.56 LV EDV: 101 ml LV EDV Index: 42 m^2 FS: 26 % LV ESV: 45.5 ml LV Length: 7.62 cm LV ESV Index: 19 m^2 LVOT Diameter: 2.4 cm Right Ventricle Tissue Doppler RV S': 16 TAPSE: 1.77 cm Left Atrium LA Systolic Pressure: 8.69 mmHg LA Area: 21 cm^2 Right Atrium RA Area: 22.6 cm^2 Great Vessels Aorta Ascending Aorta: 3.9 cm Aorta Root:3.7 cm Ascending Aorta Index:1.62 cm/m^2 Contractility Score LV regional wall motion: (0-Not visualized 1-Normal 1'-Hyperkinesis 2-Hypokinesis 3-Akinesis 4-Dyskinesis 5-Aneurysm) Demographics Age 79 Gender Male Race Height 72.99 in. Weight 261.01 lbs. BMI (BSA) 34.44 kg/m^2 (2.41 m^2) Dermatology Nurse Practitioner Feroz Hawley Interpreting Darcy Hilliard Referring NAHUM Ho Physician J Physician Joe Calabrese MD IMG ECHO ORDERABLES Edited Result - Final * POCT GLYCOSYLATED HEMOGLOBIN (02/13/2024 2:16 PM CDT) [facility] HGB-A1C 5.3 4 - 6 % 02/13/2024 2:16 PM CDT Joe Calabrese MD POINT OF CARE TESTING ([facility]) Final Result * (ABNORMAL) CMP (COMPREHENSIVE METABOLIC PANEL) (09/24/2023 12:39 PM CDT) [facility] SODIUM 140 136 - 145 mmol/L 09/24/2023 1:58 PM CDT [facility] POTASSIUM 4.5 3.5 - 5.1 mmol/L 09/24/2023 1:58 PM CDT [facility] CHLORIDE 108(H) 98 - 107 mmol/L 09/24/2023 1:58 PM CDT [facility] CO2, VENOUS 24 22 - 30 mmol/L 09/24/2023 1:58 PM CDT [facility] ANION GAP 12.5 <18.0 mmol/L 09/24/2023 1:58 PM CDT [facility] GLUCOSE 118(H) 70 - 99 mg/dL 09/24/2023 1:58 PM CDT [facility] BUN 19 8 - 26 mg/dL 09/24/2023 1:58 PM CDT [facility] CREATININE, BLOOD 0.81 0.70 - 1.30 mg/dL 09/24/2023 1:58 PM [facility] BUN/CREATININE RATIO 23(H) 12 - 20 ratio 09/24/2023 1:58 PM T [facility] TOTAL PROTEIN 7.3 6.3 - 8.2 g/dL 09/24/2023 1:58 PM T [facility] ALBUMIN 4.1 3.5 - 5.0 g/dL 09/24/2023 1:58 PM T [facility] A/G RATIO 1.3 1.0 - 2.2 09/24/2023 1:58 PM [facility] CALCIUM 8.8 8.7 - 10.5 mg/dL 09/24/2023 1:58 PM [facility] T BILI 1.6(H) 0.2 - 1.2 mg/dL 09/24/2023 1:58 PM [facility] SGOT (AST) 24 5 - 34 U/L 09/24/2023 1:58 PM [facility] Comment: Specimen is hemolyzed. In vitro hemolysis could affect results. Clinical correlation advised. SGPT (ALT) 16 0 - 55 U/L 09/24/2023 1:58 PM [facility] ALKALINE PHOSPHATASE 84 40 - 150 U/L 09/24/2023 1:58 PM [facility] IS THE PATIENT REQUIRED TO BE FASTING? No 09/24/2023 1:58 PM T [facility] GFR, ESTIMATED >60 >=60 09/24/2023 1:58 PM [facility] Comment: Creatinine Clearance is the preferred criteria for selecting drug dose adjustments in renally impaired patients. The GFR is provided as additional pertinent clinical information. GFR is reported in mL/min/1.73 sq m. Calculation based on the Chronic Kidney Disease Epidemiology Collaboration (CKD- EPI) equation refit without adjustment for race. GFR, EST. >60 >=60 024 1:58 PM CDT [facility] GFR, EST. NONAFRICAN >60 >=60 09/24/2023 1:58 PM CDT [facility] Blood Venipuncture / Unknown 09/24/2023 12:39 PM CDT 09/24/2023 1:37 PM CDT us Joe Calabrese MD CHEMISTRY ORDERABLES Final Result Performing Organization Address City/[facility]/ZIP Co de Phone Number [facility] [address] [place] [address] * HM DILATED EYE EXAM (04/24/2023 12:00 AM DIESEL POWERPLANT SUPERVISOR) 04/24/2023 us Provider Scan PROCEDURE/MINOR SURGICAL ORDERAB LES Final Result Performing Organization Address [facility] de Phone Number SCAN * HEPATITIS PANEL ACUTE (AHP) (11/18/2020 2:30 PM CDT) HEPATITIS A IGM ANTIBODY NON DETECTED NON DETECTED [place] [id number] 11/18/2020 11:34 PM CDT [facility] Comment: IGM Antibodies to HAV not detected. Does not exclude early acute or recovered HAV infection. HEP B CORE AB (IGM) NON DETECTED NON DETECTED [place] [id number] B 11/18/2020 11:34 PM CDT [facility] Comment:IGM anti-HBC not det ected. Does not exclude the possibility of exposure to or infection with HBV. HEPATITIS B SURFACE ANTIGEN NON DETECTED NON DETECTED [facility] ARCH [id number] 11/18/2020 11:34 PM CDT [facility] Comment:A nonreactive test r esult does not exclude the possibility of exposure to or infection with Hepatitis B virus. A nonreactive test result in individuals with prior exposure to hepatitis B may be due to antigen levels below the detection limit of this assay or lack of antigen reactivity to the antibodies in this assay. hepatitis C antibody 0.10 <1 S/CO [facility] ARCH [id number] 11/18/2020 11:34 PM CDT [facility] Comment: Signal/Cutoff ratio < 0.79 is Nondetected Signal/Cutoff ratio 0.80-0.99 is Grayzone Signal/Cutoff ratio > 0.99 is Detected Supplemental assays are recommended if signal/cutoff ratio is >/=1.00. Signal/cutoff ratio result >/= 5.00 is 97% predictive of positivity for recombinant immunoblot assay (RIBA) and will be reported to the [place] Department of Public Health as required. Blood Venipuncture / Unknown 11/18/2020 2:30 PM CDT 11/18/2020 2:33 PM CDT us Danae Roberts PAC HEMATOLOGY ORDERABLES Fin al Result [facility] [address] [place] [address], [place] * COLONOSCOPY (08/16/2009) us Joe Calabrese MD PROCEDURE/MINOR SURGICAL OR DERABLES Final Result from Last 3 Months or Most Recently Relevant to Health Maintenance Insurance [facility] [facility] Care Teams Contract Project Manager Relationship Specialty Start Date End Date Joe Calabrese MD [address] [place] [address] PCP - General Internal Medicine 04/22/15 Danae Roberts Angella, [facility] [address] [place] [address] Physician Skating Carhop Physician Skating Carhop 09/04/21 Babak Taveras MD #2 [facility] [address] [place] [address] Consulting Physician Interventional Cardiology 03/01/23 Ellen Taveras APRN, FLIGHT LINE MECHANIC #2 [facility], [address] [place] [address] Welt Treater Advanced Practice Nurse 03/14/23 Haider Jimenez MD #2 [place] [address] Consulting Physician Gastroenterology 06/21/22 Ellen Taveras APRN, FLIGHT LINE MECHANIC #2 [facility], [address] [place] [address] Nurse Practitioner Cardiology 12/31/23
--- OUTSIDE RECORDS SUMMARY | 2024-08-12 04:13 | XMS_ITS | Encounter Summary ---
Author Organization [facility] Address [address] [place] [address] Phone Care Team Providers Care Morning Babysitter Name Role Phone Joe Calabrese MD Primary Care Provider +[phone]- [phone] Armando Danae October PAC Unavailable [phone] Gonzalo Villalpando MD Unavailable Babak Powers MD Unavailable +[phone] Ellen Taveras APRN, ENVIRONMENTAL REMEDIATION ENGINEER Unavailable + [phone] Haider Jimenez MD Unavailable [phone] Ellen Taveras APRN, ENVIRONMENTAL REMEDIATION ENGINEER Unavailable + [phone] Reason for Visit * Reason Comments Medication Refill Encounter Details Date Type Department Care Team (Late st Contact Info) Description 03/16/2021 Refill [facility] Medical Group - Internal Medicine - [place] [address] [place] [address] Joe Calabrese MD [address] [place] [address] Medication Refill Social History Tobacco Use Types [...] have Coronavirus / COVID-19? No / Unsure 03/06/2021 10:59 AM CDT documented as of this encounter Miscellaneous Notes * Telephone Encounter - Gissel Roberson RN - 03/16/2021 12:42 PM CDT Medication failed the protocol, provider to review and approve the medication order if appropriate. Requested Prescriptions Pending Prescriptions Disp Refills gabapentin (NEURONTIN) 300 MG Capsule [Pharmacy Med Name: GABAPENTIN CAPS 300MG] 360 Capsule 3 Sig: TAKE 1 CAPSULE FOUR TIMES A DAY Not Delegated - Anticonvulsants Protocol Failed - 03/16/2021 12:19 PM Failed - This refill cannot be delegated Passed - Visit with relevant provider in past 12 months or upcoming 90 days Recent Visits Date Type Provider Dept 12/14/20 Office Visit Joe Calabrese MD [facility] 09/14/20 Office Visit Joe Calabrese MD [facility] 08/17/20 Office Visit Joe Calabrese MD [facility] 05/18/20 Office Visit Joe Calabrese MD [facility] Showing recent visits within past 365 days and meeting all other requirements Future Appointments Date Type Provider Dept 03/22/21 Appointment Joe Calabrese MD [facility] Showing future appointments within next 90 days and meeting all other requirements documented in this encounter Plan of Treatment Upcoming Encounters Date Type Department Care Team (Late st Contact Info) Description 08/20/2024 2:45 PM CDT Office Visit [facility] Medical Group - Internal Medicine - [place] [address] [place] [phone] Joe Calabrese MD [address] [place] [address] 09/08/2024 1:30 PM CDT [facility] - Cardiology [facility] #[address] [place] [address] Ellen Taveras APRN, ENVIRONMENTAL REMEDIATION ENGINEER #2 [facility] LISA'Danny [facility], [facility] [address] [place] [address] documented as of this encounter Visit Diagnoses Not on filedocumented in this encounter Additional Health Concerns Assessment Noted Time PHQ-9 Depression Total Score: 0 05/18/19 21 10:00 AM OPTICAL GOODS DRILL OPERATOR documented as of this encounter Care Teams Morning Babysitter Relationship Specialty Start Date End Date Joe Calabrese MD [address] [place] [address] PCP - General Internal Medicine 04/22/15 Danae Roberts [facility] [address] [place] [address] Physician Professional Organizer Physician Professional Organizer 09/04/21 Gonzalo Villalpando MD [address] [place] [address] Consulting Physician Cardiovascular Disease - Cardiology 02/19/23 04/19/24 Babak aTveras MD #2 [facility] [address] [place] [address] Consulting Physician Interventional Cardiology 03/01/23 Ellen Taveras APRN, ENVIRONMENTAL REMEDIATION ENGINEER #2 [facility], [facility] [address] [place] [address] Judicial Reporter Advanced Practice Nurse 03/14/23 Haider Jimenez MD #[address] [place] [address] Consulting Physician Gastroenterology 06/21/22 Ellen Taveras APRN, ENVIRONMENTAL REMEDIATION ENGINEER #2 [facility], [address] [place] [address] Nurse Practitioner Cardiology 12/31/23 documented as of this encounter
--- OUTSIDE RECORDS SUMMARY | 2024-08-12 04:13 | XMS_ITS | Encounter Summary ---
Author Organization [facility] Address [address] [place] [address] Phone Care Team Providers Care Csw Name Role Phone Joe Calabrese MD Primary Care Provider +[phone]- [phone] Armando Danae October PAC Unavailable [phone] Gonzalo Villalpando MD Unavailable Babak Powers MD Unavailable [phone] Ellen Taveras APRN, AUTOMOTIVE ELECTRICIAN Unavailable + [phone] Haider Jimenez MD Unavailable [phone] Ellen Taveras APRN, AUTOMOTIVE ELECTRICIAN Unavailable + [phone] Reason for Visit * Reason Comments Medication Refill Encounter Details Date Type Department Care Team ([facility] st Contact Info) Description 09/20/2020 Refill [facility] Medical Group - Internal Medicine - [place] [address] [place] [address] Joe Calabrese MD [address] [place] [address] Medication Refill Social History Tobacco Use Types Packs/Day Years Used Date Smoking Tobacco: Former Cigarettes Q uit: 10/18/1999 Smokeless Tobacco: Never Alcohol Use Standard [...] have Coronavirus / COVID-19? No / Unsure 09/22/2020 10:13 AM CDT documented as of this encounter Miscellaneous Notes * Telephone Encounter - Gissel Roberson RN - 09/21/2020 7:47 AM CDT Please review and sign. documented in this encounter Plan of Treatment Upcoming Encounters Date Type Department Care Team (Late st Contact Info) Description 08/20/2024 2:45 PM CDT Office Visit [facility] Medical Group - Internal Medicine [facility] [address] [place] [address] Joe Calabrese MD [address] [facility] [place] [address] 09/08/2024 1:30 PM CDT Office Visit [facility] Medical [facility] - Cardiology [facility] #2 [place] [address] Ellen Taveras APRN, AUTOMOTIVE ELECTRICIAN #2 [facility], [facility] [address] [place] [address] documented as of this encounter Visit Diagnoses Not on filedocumented in this encounter Additional Health Concerns Assessment Noted Time PHQ-9 Depression Total Score: 0 05/18/19 21 10:00 AM SENIOR FIREWALL ENGINEER documented as of this encounter Care Teams Csw Relationship Specialty Start Date End Date Joe Calabrese MD [address] [place] [address] PCP - General Internal Medicine 04/22/15 Danae Roberts Angella, PAC [address] [facility] [address] Physician Cover Creaser Physician Cover Creaser 09/04/21 Gonzalo Villalpando MD [address] [place] [address] Consulting Physician Cardiovascular Disease - Cardiology 02/19/23 04/19/24 Babak Taveras MD #2 [facility] [address] [place] [address] Consulting Physician Interventional Cardiology 03/01/23 Ellen Taveras APRN, AUTOMOTIVE ELECTRICIAN #2 [facility], [address] [address] Interlacer Advanced Practice Nurse 03/14/23 Haider Jimenez MD #2 [place] [address] Consulting Physician Gastroenterology 06/21/22 Ellen Taveras APRN, AUTOMOTIVE ELECTRICIAN #2 [facility], [address] [address] Nurse Practitioner Cardiology 12/31/23 documented as of this encounter
--- OUTSIDE RECORDS SUMMARY | 2024-08-12 04:13 | XMS_ITS | Encounter Summary ---
Author Organization [facility] Address [address] [place] [address] Phone Care Team Providers Care Digester Hand Name Role Phone Joe Calabrese MD Primary Care Provider +[phone]- [phone] Danae Roberts October PAC Unavailable [phone] Gonzalo Villalpando MD Unavailable Babak Powers MD Unavailable [phone] Ellen Taveras APRN, TRANSFER MACHINE OPERATOR Unavailable + [phone] Haider Jimenez MD Unavailable [phone] Ellen Taveras APRN, TRANSFER MACHINE OPERATOR Unavailable + [phone] Reason for Visit * Reason Comments Medication Refill Encounter Details Date Type Department Care Team ([facility] st Contact Info) Description 02/15/2020 Refill [facility] Medical Group - Internal Medicine - [place] [address] [place] [address] Joe Calabrese MD [address] [place] [address] Medication Refill Social History Tobacco Use Types [...] encounter Miscellaneous Notes * Telephone Encounter - Kayli Pan RN - 02/16/2020 8:15 AM CDT Pended to PCP documented in this encounter Plan of Treatment Upcoming Encounters Date Type Department Care Team (Late st Contact Info) Description 08/20/2024 2:45 PM CDT Office Visit [facility] Medical [facility] - Internal Medicine [facility] [address] [place] [address] Joe Calabrese MD [address] [place] [address] 09/08/2024 1:30 PM CDT Office Visit [facility] Medical [facility] - Cardiology [facility] #2 [place] [address] Ellen Taveras APRN, TRANSFER MACHINE OPERATOR #[address] [facility], [facility] [address] [place] [address] documented as of this encounter Visit Diagnoses Not on filedocumented in this encounter Care Teams Digester Hand Relationship Specialty Start Date End Date Joe Calabrese MD [address] [place] [address] PCP - General Internal Medicine 04/22/15 Danae Roberts, PAC [address] [place] [address] Physician Mental Health Associate Physician Mental Health Associate 09/04/21 Gonzalo Villalpando MD [address] [place] [address] Consulting Physician Cardiovascular Disease - Cardiology 02/19/23 04/19/24 Babak Taveras MD #2 [facility] [address] [place] [address] Consulting Physician Interventional Cardiology 03/01/23 Ellen Taveras APRN, TRANSFER MACHINE OPERATOR #2 [facility], [address] [place] [address] Convex Grinder Advanced Practice Nurse 03/14/23 Haider Jimenez MD #2 [place] [address] Consulting Physician Gastroenterology 06/21/22 Ellen Taveras APRN, TRANSFER MACHINE OPERATOR #2 [facility], [address] [place] [address] Nurse Practitioner Cardiology 12/31/23 documented as of this encounter
--- OUTSIDE RECORDS SUMMARY | 2024-08-12 04:13 | XMS_ITS | Encounter Summary ---
Author Organization [facility] Address [address] [place] [address] Phone Care Team Providers Care Line Up Worker Name Role Phone Joe Calabrese MD Primary Care Provider +[phone]- [phone] Danae Roberts October PAC Unavailable [phone] Gonzalo Villalpando MD Unavailable Babak Powers MD Unavailable [phone] Ellen Taveras APRN, CASE MANAGEMENT RN Unavailable + [phone] Haider Jimenez MD Unavailable [phone] Ellen Taveras APRN, CASE MANAGEMENT RN Unavailable + [phone] Reason for Visit * Reason Comments Medication Refill Encounter Details Date Type Department Care Team (Late st Contact Info) Description 01/25/2020 Refill [facility] - [place] [address] [place] [address] Joe Calabrese MD [address] [place] [address] Medication Refill Social History Tobacco Use Types Packs/Day Years Used Date Smoking Tobacco: Never Assessed Sex and Gender Information Value Date Recorded Sex Assigned at Not on file Legal Sex Male 10:00 PM CDT Gender Identity Not on file Sexual Orientation Not on file documented as of this encounter Miscellaneous Notes * Telephone Encounter - Gissel Roberson RN - 01/26/2020 8:07 AM CDT Please review and sign. documented in this encounter Plan of Treatment Upcoming Encounters Date Type Department Care Team (Late st Contact Info) Description 08/20/2024 2:45 PM CDT Office Visit [facility] Medical Group - Internal Medicine [facility] [address] [place] [address] Joe Calabrese MD [address] [place] [address] 09/08/2024 1:30 PM CDT Office Visit [facility] Cardiology [facility] #2 [place] [address] Ellen Taveras APRN, CASE MANAGEMENT RN #2 [facility], [facility] [address] [place] [address] documented as of this encounter Visit Diagnoses Not on filedocumented in this encounter Care Teams Line Up Worker Relationship Specialty Start Date End Date Joe Calabrese MD [address] [place] [address] PCP - General Internal Medicine 04/22/15 Danae Roberts, [facility] [address] [place] [address] Physician Document Management Specialist Physician Document Management Specialist 09/04/21 Gonzalo Villalpando MD [address] [place] [address] Consulting Physician Cardiovascular Disease - Cardiology 02/19/23 04/19/24 Babak Taveras MD #[address] [facility] [address] [place] [address] Consulting Physician Interventional Cardiology 03/01/23 Ellen Taveras APRN, CASE MANAGEMENT RN #2 [facility], [address] [place] [address] Sign Language Translator Advanced Practice Nurse 03/14/23 Haider Jimenez MD #2 [place] [address] Consulting Physician Gastroenterology 06/21/22 Ellen Taveras APRN, CASE MANAGEMENT RN #2 [facility], [address] [place] [address] Nurse Practitioner Cardiology 12/31/23 documented as of this encounter
--- OUTSIDE RECORDS SUMMARY | 2024-08-12 04:13 | XMS_ITS | Encounter Summary ---
Author Organization [facility] Address [address] [place] [address] Phone Care Team Providers Care Loss Prevention Agent Name Role Phone Joe Calabrese MD Primary Care Provider [phone]- [phone] Danae Roberts October PAC Unavailable [phone] Gonzalo Villalpando MD Unavailable Babak Powers MD Unavailable [phone] Ellen Taveras APRN, VAT TENDER Unavailable + [phone] Haider Jimenez MD Unavailable [phone] Ellen Taveras APRN, VAT TENDER Unavailable + [phone] Reason for Visit * Reason Comments Medication Refill Encounter Details Date Type Department Care Team (Late st Contact Info) Description 07/15/2020 Refill [facility] Medical Group - Internal Medicine - [place] [address] [place] [address] Joe Calabrese MD [address] [facility] [place] [address] Medication Refill Social History Tobacco Use Types [...] Telephone Encounter - Gissel Roberson RN - 07/18/2020 9:22 AM CST Please review and sign. DENT PROGRAM SPECIALIST documented in this encounter Plan of Treatment Upcoming Encounters Date Type Department Care Team (Late st Contact Info) Description 08/20/2024 2:45 PM CDT Office Visit [facility] Medical Group - Internal Medicine [place] [address] [place] [address] Joe Calabrese MD [address] [place] [address] 09/08/2024 1:30 PM CDT Office Visit [facility] - Cardiology - [place] #2 [place] [address] Ellen Taveras APRN, VAT TENDER #2 [facility], [address] [place] [address] documented as of this encounter Visit Diagnoses Not on filedocumented in this encounter Additional Health Concerns Assessment Noted Time PHQ-9 Depression Total Score: 0 05/18/19 21 10:00 AM RESIDENT PROGRAM SPECIALIST documented as of this encounter Care Teams Loss Prevention Agent Relationship Specialty Start Date End Date Joe Calabrese MD [address] [place] [address] PCP - General Internal Medicine 04/22/15 Danae Roberts, [facility] [address] [place] [address] Physician Acid Pump Operator Physician Acid Pump Operator 09/04/21 Gonzalo Villalpando MD [address] [place] [address] Consulting Physician Cardiovascular Disease - Cardiology 02/19/23 04/19/24 Babak Taveras MD #[address] [facility] [address] [place] [address] Consulting Physician Interventional Cardiology 03/01/23 Ellen Taveras APRN, VAT TENDER #2 [facility], [address] [place] [address] Program Support Assistant Advanced Practice Nurse 03/14/23 Haider Jimenez MD #[address] [place] [address] Consulting Physician Gastroenterology 06/21/22 Ellen Taveras APRN, VAT TENDER #[address] [facility], [address] [place] [address] Nurse Practitioner Cardiology 12/31/23 documented as of this encounter
--- OUTSIDE RECORDS SUMMARY | 2024-08-12 04:13 | XMS_ITS | Encounter Summary ---
Author Organization [facility] Address [address] [place] [address] Phone Care Team Providers Care Wood Model Maker Name Role Phone Joe Calabrese MD Primary Care Provider [phone] Armando Danae October PAC Unavailable [phone] Gonzalo Villalpando MD Unavailable Babak Powers MD Unavailable [phone] Ellen Taveras APRN, SOYBEAN GROWER Unavailable + [phone] Haider Jimenez MD Unavailable [phone] Ellen Taveras APRN, SOYBEAN GROWER Unavailable + [phone] Reason for Visit * Reason Comments Medication Refill Encounter Details Date Type Department Care Team ([facility] st Contact Info) Description 08/31/2020 Refill [facility] Medical Group - Internal Medicine - [place] [address] [place] [address] Joe Calabrese MD [address] [place] [address] Medication Refill Social History Tobacco Use Types [...] have Coronavirus / COVID-19? No / Unsure 09/01/2020 10:26 AM CDT documented as of this encounter Miscellaneous Notes * Telephone Encounter - Gissel Roberson RN - 09/01/2020 7:57 AM CDT Please review and sign. documented in this encounter Plan of Treatment Upcoming Encounters Date Type Department Care Team (Late st Contact Info) Description 08/20/2024 2:45 PM CDT Office Visit [facility] Medical Group - Internal Medicine [facility] [address] [place] [address] Joe Calabrese MD [address] [facility] [address] 09/08/2024 1:30 PM CDT Office Visit [facility] Medical [facility] - Cardiology [facility] #2 [place] [address] Ellen Taveras APRN, SOYBEAN GROWER #2 [facility], [facility] [address] [place] [address] documented as of this encounter Visit Diagnoses Not on filedocumented in this encounter Additional Health Concerns Assessment Noted Time PHQ-9 Depression Total Score: 0 05/18/19 21 10:00 AM ENTERPRISE BUSINESS ARCHITECT documented as of this encounter Care Teams Wood Model Maker Relationship Specialty Start Date End Date Joe Calabrese MD [address] [place] [address] PCP - General Internal Medicine 04/22/15 Danae Roberts Angella, PAC [address] [facility] [place] [address] Physician Retort Setter Physician Retort Setter 09/04/21 Gonzalo Villalpando MD [address] [place] [address] Consulting Physician Cardiovascular Disease - Cardiology 02/19/23 04/19/24 Babak Taveras MD #2 [facility] [address] [place] [address] Consulting Physician Interventional Cardiology 03/01/23 Ellen Taveras APRN, SOYBEAN GROWER #2 [facility], [address] [address] Pcat Instructor Advanced Practice Nurse 03/14/23 Haider Jimenez MD #2 [place] [address] Consulting Physician Gastroenterology 06/21/22 Ellen Taveras APRN, SOYBEAN GROWER #2 [facility], [address] [address] Nurse Practitioner Cardiology 12/31/23 documented as of this encounter
--- OUTSIDE RECORDS SUMMARY | 2024-08-12 04:13 | XMS_ITS | Encounter Summary ---
Author Organization [facility] Address [address] [place] [address] Phone Care Team Providers Care Silver Chaser Name Role Phone Joe Calabrese MD Primary Care Provider [phone] Danae Roberts October PAC Unavailable [phone] Gonzalo Villalpando MD Unavailable Babak Powers MD Unavailable [phone] Ellen Taveras APRN, CABLE DISPATCHER Unavailable + [phone] Haider Jimenez MD Unavailable [phone] Ellen Taveras APRN, CABLE DISPATCHER Unavailable + [phone] Reason for Visit * Reason Comments Medication Refill Encounter Details Date Type Department Care Team ([facility] st Contact Info) Description 06/02/2020 Refill [facility] Medical Group - Internal Medicine - [place] [address] [place] [address] Joe Calabrese MD [address] [facility] [address] Medication Refill Social History Tobacco Use Types [...] have Coronavirus / COVID-19? No / Unsure 05/18/2020 10:28 AM TAKE DOWN SORTER documented as of this encounter Miscellaneous Notes * Telephone Encounter - Gissel Roberson RN - 06/03/2020 7:59 AM CST Please review and sign. DOWN SORTER documented in this encounter Plan of Treatment Upcoming Encounters Date Type Department Care Team (Late st Contact Info) Description 08/20/2024 2:45 PM CDT Office Visit [facility] Medical Group - Internal Medicine [facility] [address] [place] [address] Joe Calabrese MD [address] [place] [address] 09/08/2024 1:30 PM CDT Office Visit [facility] - Cardiology - [place] #2 [place] [address] Ellen Taveras APRN, CABLE DISPATCHER #2 [facility], [address] [place] [address] documented as of this encounter Visit Diagnoses Not on filedocumented in this encounter Additional Health Concerns Assessment Noted Time PHQ-9 Depression Total Score: 0 05/18/19 21 10:00 AM TAKE DOWN SORTER documented as of this encounter Care Teams Silver Chaser Relationship Specialty Start Date End Date Joe Calabrese MD [address] [place] [address] PCP - General Internal Medicine 04/22/15 Danae Roberts, PAC [address] [place] [address] Physician Bell Clerk Physician Bell Clerk 09/04/21 Gonzalo Villalpando MD [address] [place] [address] Consulting Physician Cardiovascular Disease - Cardiology 02/19/23 04/19/24 Babak Taveras MD #2 [facility] [address] [place] [address] Consulting Physician Interventional Cardiology 03/01/23 Ellen Taveras APRN, CABLE DISPATCHER #2 [facility], [facility] [address] [place] [address] It Support Specialist Advanced Practice Nurse 03/14/23 Haider Jimenez MD #2 [place] [address] Consulting Physician Gastroenterology 06/21/22 Ellen Taveras APRN, CABLE DISPATCHER #2 [facility], [address] [place] [address] Nurse Practitioner Cardiology 12/31/23 documented as of this encounter
--- OUTSIDE RECORDS SUMMARY | 2024-08-12 04:13 | XMS_ITS | Encounter Summary ---
Author Organization [facility] Address [address] [place] [address] Phone Care Team Providers Care Telecommunications Support Name Role Phone Joe Calabrese MD Primary Care Provider [phone] Armando Danae October PAC Unavailable [phone] Gonzalo Villalpando MD Unavailable Babak Powers MD Unavailable [phone] Ellen Taveras APRN, ASH WORKER Unavailable + [phone] Haider Jimenez MD Unavailable [phone] Ellen Taveras APRN, ASH WORKER Unavailable + [phone] Reason for Visit * Reason Comments Medication Refill Encounter Details Date Type Department Care Team (Late st Contact Info) Description 09/23/2023 Refill [facility] - Internal Medicine - [place] [address] [place] [id number] Joe Calabrese MD [address] [place] [address] Medication Refill Social History Tobacco Use Types Packs/Day Years Used Date Smoking Tobacco: Former Cigarettes 2 30 0 10/17/1969 - 10/18/1999 Passive Smoke Exposure: Past Smokeless Tobacco: Never Alcohol Use Standard Drinks/Week Comments Not Currently 0 (1 standard drink = 0.6 oz pur e alcohol) [facility] Utilities Answer Date Recorded In the past 12 months has eyeQ, gas, oil, or water company threatened to [...] often do you attend chur ch or jain services? Never 07/25/2023 Do you belong to any clubs o r organizations such as spiritism groups, unions, fraternal or athletic groups, or [...] Total Score - Questions 1-9 0 07/11 [facility] Answer Date Recorded [...] place to sleep or slept in a prison (including now)? No 07/25/2023 Sexually Active Control Partners Comments Not Currently Sex and Gender Information Value Date Recorded Sex Assigned at Not on file Legal Sex Male 10:00 PM CDT Gender Identity Not on file Sexual Orientation Not on file documented as of this encounter Miscellaneous Notes * Telephone Encounter - Niesha Ruby RN - 09/24/2023 8:32 AM CDT Medication(s) refilled and signed per [facility] Chronic Medication Refill Standing Order for Pediatricand Adult Patients. Requested Prescriptions Pending Prescriptions Disp Refills pravastatin (PRAVACHOL) 40 MG Tablet [Pharmacy Med Name: PRAVASTATIN TABS 40MG] 90 Tablet 3 Sig: TAKE 1 TABLET NIGHTLY Hmg CoA Reductase Inhibitors Protocol Passed - 09/23/2023 11:18 PM Passed - Visit with relevant provider in past 12 months or upcoming 90 days Recent Visits Date Type Provider Dept 07/25/23 Office Visit Joe Calabrese MD [facility] 04/25/23 Office Visit Joe Calabrese MD [facility] 01/24/23 Office Visit Joe Calabrese MD [facility] 10/18/22 Office Visit CalabreseJoe MD [facility] Showing recent visits within past 365 days and meeting all other requirements Future Appointments Date Type Provider Dept 10/31/23 Appointment Joe Calabrese MD [facility] Showing future appointments within next 90 days and meeting all other requirements Passed - Lipid panel in past 12 months LDL Date Value Ref Range Status 11/07/2022 87 5 - 130 mg/dL Final HDL CHOLESTEROL Date Value Ref Range Status 11/07/2022 42.1 >40 mg/dL Final CHOLESTEROL Date Value Ref Range Status 11/07/2022 147 <=200 mg/dL Final TRIGLYCERIDES Date Value Ref Range Status 11/07/2022 91 <150 mg/dL Final VLDL Date Value Ref Range Status 11/07/2022 18 5 - 55 mg/dL Final CHOL/HDL RATIO Date Value Ref Range Status 11/07/2022 3.5 0.0 - 4.4 Final NON-HDL CHOLESTEROL Date Value Ref Range Status 11/07/2022 104.9 <130 mg/dL Final Passed - CMP in past 12 months SODIUM Date Value Ref Range Status 11/07/2022 139 136 - 144 mmol/L Final POTASSIUM Date Value Ref Range Status 11/07/2022 4.6 3.5 - 5.1 mmol/L Final CHLORIDE Date Value Ref Range Status 11/07/2022 103 100 - 110 mmol/L Final CO2, VENOUS Date Value Ref Range Status 11/07/2022 24 22 - 32 mmol/L Final ANION GAP Date Value Ref Range Status 11/07/2022 16.6 8.0 - 20.0 mmol/L Final GLUCOSE Date Value Ref Range Status 11/07/2022 121 (H) 70 - 99 mg/dL Final BUN Date Value Ref Range Status 11/07/2022 16 8 - 23 mg/dL Final CREATININE, BLOOD Date Value Ref Range Status 11/07/2022 0.65 (L) 0.80 - 1.30 mg/dL Final BUN/CREATININE RATIO Date Value Ref Range Status 11/07/2022 25 (H) 12 - 20 ratio Final TOTAL PROTEIN Date Value Ref Range Status 11/07/2022 7.0 6.0 - 8.3 g/dL Final ALBUMIN Date Value Ref Range Status 11/07/2022 4.4 3.5 - 5.2 g/dL Final Comment: The colormetric methods used for the determination of Albumin may lead to falsely elevated test results in patients suffering from renal failure or insufficiency due to interference with other proteins. A/G RATIO Date Value Ref Range Status 11/07/2022 1.7 1.0 - 2.0 Final CALCIUM Date Value Ref Range Status 11/07/2022 9.0 8.9 - 10.3 mg/dL Final T BILI Date Value Ref Range Status 11/07/2022 1.4 (H) <=1.2 mg/dL Final SGOT (AST) Date Value Ref Range Status 11/07/2022 18 <=40 U/L Final Comment: Hemolysis present: results may be falsely elevated. SGPT (ALT) Date Value Ref Range Status 11/07/2022 12 <=41 U/L Final ALKALINE PHOSPHATASE Date Value Ref Range Status 11/07/2022 85 40 - 130 U/L Final GFR, EST. NONAFRICAN Date Value Ref Range Status 11/07/2022 >60 >=60 Final GFR, EST. Date Value Ref Range Status 11/07/2022 >60 >=60 Final GFR, ESTIMATED Date Value Ref Range Status 11/07/2022 >60 >=60 Final Comment: Creatinine Clearance is the preferred criteria for selecting drug dose adjustments in renally impaired patients. The GFR is provided as additional pertinent clinical information. GFR is reported in mL/min/1.73 sq m. Calculation based on the Chronic Kidney Disease Epidemiology Collaboration (CKD- EPI) equation refitwithout adjustment for race. IS THE PATIENT REQUIRED TO BE FASTING? Date Value Ref Range Status 11/07/2022 No Final documented in this encounter Plan of Treatment Upcoming Encounters Date Type Department Care Team (Late st Contact Info) Description 08/20/2024 2:45 PM CDT Office Visit [facility] - Internal Medicine [facility] [address] [place] [phone] Joe Calabrese MD [address] [place] [address] 09/08/2024 1:30 PM CDT Office Visit [facility] - Cardiology [facility] [address] [place] [address] Ellen Taveras APRN, ASH WORKER #2 [facility] [address] [place] [address] documented as of this encounter Visit Diagnoses Not on filedocumented in this encounter Additional Health Concerns Assessment Noted Time PHQ-9 Depression Total Score: 0 07/25/19 24 1:49 PM CDT documented as of this encounter Care Teams Telecommunications Support Relationship Specialty Start Date End Date Joe Calabrese MD [address] [place] [address] PCP - General Internal Medicine 04/22/15 [facility] [address] [place] [address] Physician Lighter Physician Lighter 09/04/21 Gonzalo Villalpando MD [address] [place] [address] Consulting Physician Cardiovascular Disease - Cardiology 02/19/23 04/19/24 Babak Taveras MD #[address] [address] Consulting Physician Interventional Cardiology 03/01/23 Ellen Taveras APRN, ASH WORKER #2 [facility] [address] [place] [address] Clinical Systems Educator Advanced Practice Nurse 03/14/23 Haider Jimenez MD [address] [place] [address] Consulting Physician Gastroenterology 06/21/22 Ellen Taveras APRN, ASH WORKER #2 [facility], [address] [place] [address] Nurse Practitioner Cardiology 12/31/23 documented as of this encounter
--- NOTE | 2024-08-12 04:24 | ECG_ITS ---
Test Date: 2024-08-12 04:42:41 Measurements Intervals [place] Rate: 85 P: 0 WA: 0 QRS: -28 QRSD: 98 T: 55 QT: 356 QTc: 424 Interpretive Statements ATRIAL FIBRILLATION ANTEROSEPTAL INFARCT, AGE INDETERMINATE CONSIDER INFERIOR INFARCT, AGE INDETERMINATE BASELINE ARTIFACT- I, III, AVL, AVF ABNORMAL ECG No previous ECG available for comparison Electronically Signed On 08-12-2024 06:15:04 CDT by Erick Johnston D.O.
--- NOTE | 2024-08-12 04:27 | ED_ITS ---
HPI - SOB/Dyspnea General Chief Complaint: Dizziness Stated Complaint: SOB, DIZZY, LIGHTHEADED Time Seen by Provider: 08/12/24 04:23 Source: patient Mode of arrival: ambulatory Limitations: no limitations History of Present Illness HPI Narrative: Patient is a 79-year-old male with acute onset of shortness of breath with lightheaded dizziness prior to arrival. Saturation on arrival was about 90% room air. He has history of AFib using Eliquis. No COPD or CHF history. patient has lower extremity edema new onset this week. MD elicited complaint: shortness of breath Pertinent past history: diabetes and other ( Hypertension, hyperlipidemia, AFib /Eliquis) Onset (ago): hour(s) ( 1) Context: other ( patient has acute onset of shortness of breath with lightheaded and dizziness) Timing: constant and improved Severity: moderate Exacerbating factors: nothing Relieving factors: nothing Known history of: diabetes and other ( see above) Associated symptoms: denies other symptoms Treatment prior to arrival: none Related Data Home oxygen amount: none Home Medications ?Medication ?Instructions ?Recorded ?Confirmed ?Last Taken ?Type aspirin 81 mg tablet 81 mg PO DAILY 11/02/21 08/12/24 Unknown History albuterol sulfate 90 mcg/actuation 2 puff inhalation Q6H 08/12/24 08/12/24 Unknown History aerosol inhaler apixaban 5 mg tablet (Eliquis) 5 mg PO DAILY 08/12/24 08/12/24 Unknown History carvedilol 25 mg tablet 25 mg PO DAILY 08/12/24 08/12/24 Unknown History furosemide 20 mg tablet 20 mg PO DAILY 08/12/24 08/12/24 Unknown History gabapentin 300 mg capsule 300 mg PO DAILY 08/12/24 08/12/24 Unknown History glipizide 5 mg tablet 5 mg PO DAILY 08/12/24 08/12/24 Unknown History metformin 1,000 mg tablet 1,000 mg PO DAILY 08/12/24 08/12/24 Unknown History omeprazole 40 mg capsule,delayed 40 mg PO DAILY 08/12/24 08/12/24 Unknown History release pravastatin 40 mg tablet 40 mg PO DAILY 08/12/24 08/12/24 Unknown History sucralfate 1 gram tablet (Carafate) 1 g PO DAILY 08/12/24 08/12/24 Unknown History tamsulosin 0.4 mg capsule 0.4 mg PO DAILY 08/12/24 08/12/24 Unknown History Allergies Allergy/AdvReac Type Severity Reaction Status Date / Time duloxetine (From Cymbalta) Allergy Intermediate Rash on Verified 08/12/24 04:27 face Review of Systems 2 Review of Systems: All systems reviewed & are unremarkable except as noted in HPI and below Constitutional: Constitutional: Reports no additional constitutional complaints Eyes: Eyes: Reports no additional eye complaints ENT: Reports system reviewed and no additional complaints, except as documented Cardiovascular: Cardiovascular: Reports no additional cardiovascular complaints Respiratory: Respiratory: Reports no additional respiratory complaints Gastrointestinal: Gastrointestinal: Reports no additional gastrointestinal complaints Genitourinary: Genitourinary: Reports no additional male genitourinary complaints Musculoskeletal: Musculoskeletal: Reports no additional musculoskeletal complaints Integumentary/Breasts: Skin/Breast: Reports system reviewed and no additional complaints, except as docu Neurologic: Reports system reviewed and no additional complaints, except as documented Psychiatric: Psychiatric: Reports no additional psychiatric complaints Endocrine: Endocrine: Reports no additional endocrine complaints Hematologic/Lymphatic: Hematologic/Lymphatic: Reports no additional hematologic/lymphatic complaints Allergic/Immunologic: Allergic/Immunologic: Reports no additional allergic/immunologic complaints PMFSH Past Medical History Medical History Patient denies medical problems Exam 2 Const: General: ill appearing Nutritional Appearance: well nourished O rientation/consciousness: patient oriented x3 Limitations: no limitations HENMT: Head: normal to inspection Ears: external ears normal F олег/Nose/Sinus: Normal external nose present Eyes: Conjunctivae: conjunctivae normal Pupils: Equal, round and reactive pupils present EOM: EOMs intact bilaterally Neck: Neck: normal visual inspection Chest: Chest palpation & inspection: normal inspection of the chest Resp: Effort & Inspection: normal respiratory effort, not labored, no retractions, tachypneic and no use of accessory muscles Auscultation: clear to auscultation bilaterally, no crackles, no rales, no rhonchi, no wheezes, breath sounds present and diminished lung sounds Cardio: Rate: regular rate Rhythm: abnormal rhythm and abnormal rhythm H eart sounds: no murmurs GI: Inspection: non-distended GI Palp: Yes Soft to palpation and No Tenderness to palpation present (GI) Auscultation: normal bowel sounds : General: Yes bladder normal to palpation Back/Spine/Pelvis: Back: no CVA tenderness Skin: General skin exam: normal color Rashes: no rashes Wounds: no wounds Neuro: General: patient oriented x3 Cranial nerves: Yes Nystagmus not present Speech: normal speech Gait exam (Neuro): Normal gait present Extrem: General: normal to inspection Psych: Mental Status: mental status grossly normal Affect: normal affect Attitude: cooperative Course Vital Signs Vital signs: Vital Signs Temperature 36.4 C 08/12/24 04:11 Pulse Rate 85 08/12/24 04:11 Respiratory Rate 22 H 08/12/24 04:11 Blood Pressure 153/92 H 08/12/24 04:11 Pulse Oximetry 94 08/12/24 04:11 Oxygen Delivery Room Air 08/12/24 04:11 Temperature 36.4 C 08/12/24 04:11 Pulse Rate 87 08/12/24 05:45 Respiratory Rate 17 08/12/24 05:45 Blood Pressure 122/96 H 08/12/24 05:31 Pulse Oximetry 98 08/12/24 05:31 Oxygen Delivery Nasal Cannula 08/12/24 05:45 Oxygen Flow Rate 2 08/12/24 05:45 MDM - SOB/Dyspnea MDM Narrative Medical decision making narrative: Patient is a 79-year-old male with acute onset of shortness of breath and lightheaded dizziness this evening. We will do a cardiopulmonary workup at this time. we will monitor for sepsis. He will start sirs criteria with tachypnea and hypoxemia. Lab Data Attestation: I reviewed the patient's lab results. 08/12/24 04:23 08/12/24 04:23 Labs: Lab Results 08/12/24 08/12/24 08/12/24 Range/Units 04: 04:47 05:20 WBC 10.6 (4.8-10.8) K/mm3 RBC 5.89 (4.70-6.10) M/mm3 Hgb 17.0 H (12.4-15.3) g/dL Hct 52.1 H (37.0-46.0) % MCV 88.5 (78.0-102.0) fL MCH 28.9 (27.0-31.0) pg MCHC 32.6 (32-36) g/dL RDW 13.0 (11.6-14.4) % Plt Count 169 (150-420) K/mm3 MPV 10.9 (8.7-11.0) fl Immature Gran % (Auto) 0.3 H (0.0-0.0) % Neut % (Auto) 57.1 (50.0-70.0) % Lymph % (Auto) 27.7 (18.0-42.0) % [place] % (Auto) 8.7 (2.0-11.0) % Eos % (Auto) 5.3 (1.0-6.0) % Baso % (Auto) 0.9 (0.0-1.0) % Lymph # (Auto) 2.92 (1.10-4.50) K/mm3 [place] # (Auto) 0.92 H (0.10-0.90) K/mm3 Eos # (Auto) 0.56 H (0.02-0.50) K/mm3 Baso # (Auto) 0.10 (0.00-0.10) K/mm3 Abs Immat Gran (auto) 0.03 H (0.00-0.00) K/mm3 Absolute Neuts (auto) 6.02 (1.70-7.20) K/mm3 Absolute Nucleated RBC 0.00 (0.00-0.00) K/mm3 Nucleated RBC % 0.0 (0-0.0) % PT 11.5 (9.50-12.1) Seconds INR 1.0 APTT 29.3 (23.9-30.70) Sec D-Dimer 0.38 (0.19-0.50) mg/L Sodium 136 (136-145) mmol/L Potassium 4.3 (3.5-5.1) mmol/L Chloride 103 (98-108) mmol/L Carbon Dioxide 25 (21-32) mmol/L Anion Gap 8 (4-12) mmol/L BUN 19 H (7-18) mg/dL Creatinine 1.07 (0.70-1.30) mg/dL Estim Creat Clear Calc Not Reportable Estimated GFR > 60 (59 - ) Glucose 137 H (70-99) mg/dL Calculated Osmolality 286 (285-295) mOsm/kg Lactic Acid 1.3 (0.4-2.0) mmol/L Calcium 8.7 (8.5-10.1) mg/dL Magnesium 1.8 (1.8-2.4) mg/dL Total Bilirubin 1.1 H (0.00-1.00) mg/dL AST 19 (15-37) U/L ALT 24 (16-63) U/L Alkaline Phosphatase 105 (46-116) U/L Troponin I 15.7 (0.00-60.4) ng/L NT-Pro-B Natriuret Pep 1542 H (0-450) pg/mL Total Protein 7.2 (6.4-8.2) g/dL Albumin 3.6 (3.4-5.0) g/dL Urine Color Light yellow (Yellow) Urine Appearance Clear (Clear) Urine pH 6.0 (5.0-8.0) Ur Specific [place] 1.020 (1.010-1.020) Urine Protein Negative (Negative) Urine Glucose (UA) Negative (Negative) Urine Ketones Negative (Negative) Ur Blood (Man) Negative (Negative) Urine Nitrate Negative (Negative) Urine Bilirubin Negative (Negative) Urine Urobilinogen 1.0 (0.2-1.0) mg/dL Leukocyte Esterase Rfl Trace H (Negative) KAYDEN/UL Urine RBC 0-2 (0-2) /hpf Urine WBC 0-3 (0-3) /hpf Ur Squamous Epith Cells Rare (Few) /hpf Urine Bacteria Trace (None) /hpf Influenza A (RT-PCR) Negative (Negative) Influenza B (RT-PCR) Negative (Negative) RSV (RT-PCR) Negative (Negative) SARS-CoV-2 RNA (RT-PCR) Negative (Negative) Imaging Data Attestation: I personally reviewed and interpreted this imaging study as follows: Radiologist's impression: Chest x-ray ( read by me pending final results) shows right middle lobe infiltrate and pulmonary edema ECG Data EKG #1: Attestation: I personally reviewed and interpreted this ECG as follows: ECG completion date: 08/12/24 ECG completion time: 04:34 EKG Interpretation: normal rate, atrial fibrillation, non-specific ST changes, normal QRS, normal QT and left axis Discharge Plan Discharge Clinical Impression: Pneumonia Qualifiers: Pneumonia type: due to unspecified organism Laterality: right Lung location: m iddle lobe of lung Qualified Code(s): J18.9 - Pneumonia, unspecified organism Acute exacerbation of CHF (congestive heart failure) Qualifiers: Heart failure type: unspecified Qualified Code(s): I50.9 - Heart failure, unspecified Patient Disposition: Acute Care Hospital Condition: Stable Patient Language: [place] Prescriptions: No Action carvedilol 25 mg tablet 25 mg PO DAILY pravastatin 40 mg tablet 40 mg PO DAILY omeprazole 40 mg capsule,delayed release(DR/EC) 40 mg PO DAILY tamsulosin 0.4 mg capsule 0.4 mg PO DAILY metformin 1,000 mg tablet 1,000 mg PO DAILY gabapentin 300 mg capsule 300 mg PO DAILY furosemide 20 mg tablet 20 mg PO DAILY albuterol sulfate 90 mcg/actuation HFA aerosol inhaler 2 puff INHALATION Q6H glipizide 5 mg tablet 5 mg PO DAILY Eliquis 5 mg tablet 5 mg PO DAILY sucralfate [Carafate] 1 gram tablet 1 g PO DAILY Adult Aspirin 81 mg Tablet 81 mg PO DAILY Follow-up/Referrals: Guanakito,Joe David MD [Primary Care Provider] - Time of Disposition: 06:18
[2024-08-12 04:35] LABS: Basophils Percent Auto 0.9 % (0.0-1.0); Eosinophils Absolute Auto 0.56 K/mm3 (0.02-0.50); Eosinophils Percent Auto 5.3 % (1.0-6.0); Hematocrit 52.1 % (37.0-46.0); Immature Granulocyte Absolute 0.03 K/mm3 (0.00-0.00); Immature Granulocyte Percent A 0.3 % (0.0-0.0); Lymphocytes Absolute Auto 2.92 K/mm3 (1.10-4.50); Lymphocytes Percent Auto 27.7 % (18.0-42.0); Mean Corpuscular HGB Conc 32.6 g/dL (32-36); Mean Corpuscular Hemoglobin 28.9 pg (27.0-31.0); Mean Corpuscular Volume 88.5 fL (78.0-102.0); Mean Platelet Volume 10.9 fl (8.7-11.0); Monocytes Absolute Auto 0.92 K/mm3 (0.10-0.90); Monocytes Percent Auto 8.7 % (2.0-11.0); Neutrophils Absolute Auto 6.02 K/mm3 (1.70-7.20); Neutrophils Percent Auto 57.1 % (50.0-70.0); Platelet Count Result 169 K/mm3 (150-420); Red Blood Count 5.89 M/mm3 (4.70-6.10); White Blood Count 10.6 K/mm3 (4.8-10.8)
[2024-08-12 04:46] LABS: D Dimer 0.38 mg/L (0.19-0.50); Partial Thromboplastin Time 29.3 Sec (23.9-30.70); Prothrombin Time 11.5 Seconds (9.50-12.1)
[2024-08-12 04:49] LABS: Alanine Aminotransferase 24 U/L (16-63); Albumin Level 3.6 g/dL (3.4-5.0); Alkaline Phosphatase 105 U/L (46-116); Anion Gap 8 mmol/L (4-12); Aspartate Amino Transferase 19 U/L (15-37); Bilirubin,Total 1.1 mg/dL (0.00-1.00); Calcium 8.7 mg/dL (8.5-10.1); Carbon Dioxide 25 mmol/L (21-32); Chloride 103 mmol/L (98-108); Estimated Glomerular Filt Rate > 60; Glucose 137 mg/dL (70-99); NT Pro B Type Natriuretic Pept 1542 pg/mL (0-450); Potassium 4.3 mmol/L (3.5-5.1); Sodium 136 mmol/L (136-145); Total Protein 7.2 g/dL (6.4-8.2)
[2024-08-12 04:58] LABS: Troponin I 15.7 ng/L (0.00-60.4)
[2024-08-12 05:08] LABS: Lactic Acid Reflex 1.3 mmol/L (0.4-2.0)
[2024-08-12 05:12] LABS: Magnesium 1.8 mg/dL (1.8-2.4)
[2024-08-12 05:13] LABS: Blood Urea Nitrogen 19 mg/dL (7-18); Osmolality Calculated 286 mOsm/kg (285-295)
[2024-08-12 05:44] LABS: Influenza A QL RT-PCR Negative (Negative); Influenza B QL RT-PCR Negative (Negative); RSV RNA, RT-PCR Negative (Negative); SARS-CoV-2 RNA PCR Negative (Negative)
[2024-08-12 05:50] LABS: Add Urine Microscopic? YES; Appearance Urine Clear (Clear); Bilirubin Urine Negative (Negative); Blood Urine Negative (Negative); Color Urine Light Yellow (Yellow); Glucose Urine UA Negative (Negative); Ketones Urine Negative (Negative); Leukocyte Esterase Ur Trace LEU/UL (Negative); Nitrate Urine Negative (Negative); Protein Urine Negative (Negative)
[2024-08-12 05:57] LABS: Bacteria Urine Trace /hpf; RBC Urine 0-2 /hpf (0-2); Squamous Epithelial Cell Urine Rare /hpf (Few); WBC Urine 0-3 /hpf (0-3)
--- OUTSIDE RECORDS SUMMARY | 2024-08-12 06:21 | XMS_ITS | Encounter Summary ---
Author Organization [facility] Address [address] [place] [address] Phone Care Team Providers Care Puller Machine Name Role Phone Joe Calabrese MD Primary Care Provider [phone] Danae Roberts October PAC Unavailable [phone] Gonzalo Villalpando MD Unavailable Babak Powers MD Unavailable [phone] Ellen Taveras APRN, MOLDING MACHINE TENDER Unavailable + [phone] Haider Jimenez MD Unavailable [phone] Ellen Taveras APRN, MOLDING MACHINE TENDER Unavailable [phone] Reason for Visit * Reason Comments Medication Refill Encounter Details Date Type Department Care Team (Late st Contact Info) Description 01/25/2020 [facility]ill [facility] - [facility] Medicine - [place] [address] [place] [phone] Joe Calabrese MD [address] [place] [address] Medication Refill Social History Tobacco Use Types [...] 08/20/2024 2:45 PM CDT Office Visit [facility] - Internal Medicine [facility] [address] [place] [id number] Joe Calabrese MD [address] [place] [address] 09/08/2024 1:30 PM CDT Office Visit [facility] Cardiology [facility] [address] [place] [address] Ellen Taveras APRN, MOLDING MACHINE TENDER #2 [facility], [facility] [address] [place] [address] documented as of this encounter Visit Diagnoses Not on filedocumented in this encounter Care Teams Puller Machine Relationship Specialty Start Date End Date Joe Calabrese MD [address] [place] [address] PCP - General Internal Medicine 04/22/15 Danae Roberts, [facility] [address] [place] [address] Physician Dog Warden Physician Dog Warden 09/04/21 Gonzalo Villalpando MD [address] [place] [address] Consulting Physician Cardiovascular Disease - Cardiology 02/19/23 04/19/24 Babak Taveras MD #2 [facility] [address] [place] [address] Consulting Physician Interventional Cardiology 03/01/23 Ellen Taveras APRN, MOLDING MACHINE TENDER #2 [facility], [address] [place] [address] Certified Meeting Professional Advanced Practice Nurse 03/14/23 Haider Jimenez MD [address] [place] [address] Consulting Physician Gastroenterology 06/21/22 Ellen Taveras APRN, MOLDING MACHINE TENDER #2 [facility], [address] [place] [id number] Nurse Practitioner Cardiology 12/31/23 documented as of this encounter
--- OUTSIDE RECORDS SUMMARY | 2024-08-12 06:21 | XMS_ITS | Encounter Summary ---
Author Organization [facility] Address [address] [place] [address] Phone Care Team Providers Care Buckle Sewer Machine Name Role Phone Joe Calabrese MD Primary Care Provider +[phone]- [phone] Armando Danae October PAC Unavailable [phone] Gonzalo Villalpando MD Unavailable Babak Powers MD Unavailable [phone] Ellen Taveras APRN, WELDING MACHINE OPERATOR PLASMA ARC Unavailable + [phone] Haider Jimenez MD Unavailable [phone] Ellen Taveras APRN, WELDING MACHINE OPERATOR PLASMA ARC Unavailable + [phone] Reason for Visit * Reason Comments Medication Refill Encounter Details Date Type Department Care Team ([facility] st Contact Info) Description 02/23/2023 Refill [facility] Medical Group - Internal Medicine - [place] [address] [place] [address] Joe Calabrese MD [address] [facility] [address] Medication Refill Social History Tobacco Use Types [...] 04/11/22 Office Visit Joe Calabrese MD [facility] [place] Showing recent visits within past 365 days and meeting all other requirements Future Appointments Date Type Provider Dept 04/25/23 Appointment Joe Calabrese MD [facility] [place] Showing future appointments within next 90 days and meeting all other requirements documented in this encounter Plan of Treatment Upcoming Encounters Date Type Department Care Team (Late st Contact Info) Description 08/20/2024 2:45 PM CDT Office Visit [facility] Medical Group - Internal Medicine - [place] [address] [place] [address] Joe Calabrese MD [address] [place] [address] 09/08/2024 1:30 PM CDT [facility] - Cardiology [facility] [address] [place] [address] Ellen Taveras APRN, WELDING MACHINE OPERATOR PLASMA ARC #2 [facility], [address] [place] [address] documented as of this encounter Visit Diagnoses Not on filedocumented in this encounter Additional Health Concerns Assessment Noted Time PHQ-9 Depression Total Score: 0 05/18/19 21 10:00 AM LICENSED SOCIAL WORKER documented as of this encounter Care Teams Buckle Sewer Machine Relationship Specialty Start Date End Date Joe Calabrese MD [address] [place] [address] PCP - General Internal Medicine 04/22/15 Danae Roberts [facility] [address] [place] [address] Physician Medical Staff Assistant Physician Medical Staff Assistant 09/04/21 Gonzlao Villalpando MD [address] [place] [address] Consulting Physician Cardiovascular Disease - Cardiology 02/19/23 04/19/24 Babak Taveras MD #2 [facility] [address] [place] [address] Consulting Physician Interventional Cardiology 03/01/23 Ellen Taveras APRN, WELDING MACHINE OPERATOR PLASMA ARC #2 [facility], [address] [address] Diabetes Solutions Specialist Advanced Practice Nurse 03/14/23 Haider Jimenez MD #[address] [place] [address] Consulting Physician Gastroenterology 06/21/22 Ellen Taveras APRN, WELDING MACHINE OPERATOR PLASMA ARC [address] [facility], [address] [place] [address] Nurse Practitioner Cardiology 12/31/23 documented as of this encounter
--- OUTSIDE RECORDS SUMMARY | 2024-08-12 06:21 | XMS_ITS | Encounter Summary ---
Author Organization [facility] Address [address] [place] [address] Phone Care Team Providers Care Autocad Designer Name Role Phone Joe Calabrese MD Primary Care Provider [phone] Danae Roberts October PAC Unavailable [phone] Gonzalo Villalpando MD Unavailable Babak Powers MD Unavailable +[phone] Ellen Taveras APRN, RESEARCH RN SPEC Unavailable + [phone] Haider Jimenez MD Unavailable [phone] Ellen Taveras APRN, RESEARCH RN SPEC Unavailable + [phone] Reason for Visit * Reason Comments Medication Refill Encounter Details Date Type Department Care Team ([facility] st Contact Info) Description 06/02/2020 Refill [facility] Medical Group - Internal Medicine - [place] [address] [place] [address] Joe Calabrese MD [address] [facility] [address] Medication Refill Social History Tobacco Use Types [...] COVID-19? No / Unsure 05/18/2020 10:28 AM PULP BEATER documented as of this encounter Miscellaneous Notes * Telephone Encounter - Gissel Roberson RN - 06/03/2020 7:59 AM CST Please review and sign. BEATER documented in this encounter Plan of Treatment Upcoming Encounters Date Type Department Care Team (Late st Contact Info) Description 08/20/2024 2:45 PM CDT Office Visit [facility] Medical Group - Internal Medicine [facility] [address] [place] [id number] Joe Calabrese MD [address] [place] [address] 09/08/2024 1:30 PM CDT Office Visit [facility] - Cardiology - [place] [address] [place] [address] Ellen Taveras APRN, RESEARCH RN SPEC #2 [facility], [address] [place] [address] documented as of this encounter Visit Diagnoses Not on filedocumented in this encounter Additional Health Concerns Assessment Noted Time PHQ-9 Depression Total Score: 0 05/18/19 21 10:00 AM PULP BEATER documented as of this encounter Care Teams Autocad Designer Relationship Specialty Start Date End Date Joe Calabrese MD [address] [place] [address] PCP - General Internal Medicine 04/22/15 Danae Roberts, PAC [address] [place] [address] Physician Tab Cutter Physician Tab Cutter 09/04/21 Gonzalo Villalpando MD [address] [place] [address] Consulting Physician Cardiovascular Disease - Cardiology 02/19/23 04/19/24 Babak Taveras MD #2 [facility] [address] [place] [address] Consulting Physician Interventional Cardiology 03/01/23 Ellen Taveras APRN, RESEARCH RN SPEC #2 [facility], [facility] [address] [place] [address] Blacksmith Supervisor Advanced Practice Nurse 03/14/23 Haider Jimenez MD [address]2 [place] [address] Consulting Physician Gastroenterology 06/21/22 Ellen Taveras APRN, RESEARCH RN SPEC #2 [facility], [address] [place] [address] Nurse Practitioner Cardiology 12/31/23 documented as of this encounter
--- OUTSIDE RECORDS SUMMARY | 2024-08-12 06:21 | XMS_ITS | Encounter Summary ---
Author Organization [facility] Address [address] [place] [address] Phone Care Team Providers Care Digital Communications Manager Name Role Phone Joe Calabrese MD Primary Care Provider [phone] Danae Roberts October PAC Unavailable [phone] Gonzalo Villalpando MD Unavailable Babak Powers MD Unavailable [phone] Ellen Taveras APRN, PRINT GRAPHIC DESIGNER Unavailable + [phone] Haider Jimenez MD Unavailable [phone] Ellen Taveras APRN, PRINT GRAPHIC DESIGNER Unavailable + [phone] Reason for Visit * Reason Comments Medication Refill Encounter Details Date Type Department Care Team (Late st Contact Info) Description 07/15/2020 Refill [facility] Medical Group - Internal Medicine - [place] [address] [place] [address] Joe Calabrese MD [address] [facility] [address] Medication Refill Social History Tobacco Use Types [...] 9:22 AM CST Please review and sign. UCTION CONTROL ANALYST documented in this encounter Plan of Treatment Upcoming Encounters Date Type Department Care Team (Late st Contact Info) Description 08/20/2024 2:45 PM CDT Office Visit [facility] Medical Group - Internal Medicine [place] [address] [place] [address] Joe Calabrese MD [address] [place] [address] 09/08/2024 1:30 PM CDT Office Visit [facility] - Cardiology - [place] [address] [place] [address] Ellen Taveras APRN, PRINT GRAPHIC DESIGNER #2 [facility], [address] [place] [address] documented as of this encounter Visit Diagnoses Not on filedocumented in this encounter Additional Health Concerns Assessment Noted Time PHQ-9 Depression Total Score: 0 05/18/19 21 10:00 AM PRODUCTION CONTROL ANALYST documented as of this encounter Care Teams Digital Communications Manager Relationship Specialty Start Date End Date Joe Calabrese MD [address] [place] [address] PCP - General Internal Medicine 04/22/15 Danae Roberts, [facility] [address] [place] [address] Physician Engineer First Assistant Physician Engineer First Assistant 09/04/21 Gonzalo Villalpando MD [address] [place] [address] Consulting Physician Cardiovascular Disease - Cardiology 02/19/23 04/19/24 Babak Taveras MD #[address] [facility] [facility] [address] [place] [address] Consulting Physician Interventional Cardiology 03/01/23 Ellen Taveras APRN, PRINT GRAPHIC DESIGNER #2 [facility] [place] [facility], [address] [place] [address] Melter Operator Advanced Practice Nurse 03/14/23 Haider Jimenez MD #[address] [place] [address] Consulting Physician Gastroenterology 06/21/22 Ellen Taveras APRN, PRINT GRAPHIC DESIGNER #2 [facility], [address] [place] [address] Nurse Practitioner Cardiology 12/31/23 documented as of this encounter
--- OUTSIDE RECORDS SUMMARY | 2024-08-12 06:21 | XMS_ITS | Encounter Summary ---
Author Organization [facility] Address [address] [place] [address] Phone Care Team Providers Care Mail Processing Machine Operator Name Role Phone Joe Calabrese MD Primary Care Provider [phone] Danae Roberts October PAC Unavailable [phone] Gonzalo Villalpando MD Unavailable Babak Powers MD Unavailable [phone] Ellen Taveras APRN, RIM TURNING MACHINE OPERATOR Unavailable + [phone] Haider Jimenez MD Unavailable [phone] Ellen Taveras APRN, RIM TURNING MACHINE OPERATOR Unavailable + [phone] Reason for Visit * Reason Comments Medication Refill Encounter Details Date Type Department Care Team (Late st Contact Info) Description 04/17/2020 Refill [facility] Medical Group - Internal Medicine [facility] [address] [place] [address] Joe Calabrese MD [address] [facility] [place] [address] Medication Refill Social History Tobacco Use Types [...] 7:36 AM CST Please review and sign. ULE FILLING MACHINE OPERATOR documented in this encounter Plan of Treatment Upcoming Encounters Date Type Department Care Team (Late st Contact Info) Description 08/20/2024 2:45 PM CDT Office Visit [facility] Medical Group - Internal Medicine [place] [address] [place] [address] Joe Calabrese MD [address] [place] [address] 09/08/2024 1:30 PM CDT Office Visit [facility] - Cardiology - [place] [address] [place] [address] Ellen Taveras APRN, RIM TURNING MACHINE OPERATOR #2 [facility], [address] [place] [address] documented as of this encounter Visit Diagnoses Not on filedocumented in this encounter Additional Health Concerns Assessment Noted Time PHQ-9 Depression Total Score: 0 02/17/20 20 11:00 AM CDT documented as of this encounter Care Teams Mail Processing Machine Operator Relationship Specialty Start Date End Date Joe Calabrese MD [address] [place] [address] PCP - General Internal Medicine 04/22/15 Danae Roberts, XIOMARA [address] [place] [address] Physician Nuclear Powerplant Mechanic Physician Nuclear Powerplant Mechanic 09/04/21 Gonzalo Villalpando MD [address] [place] [address] Consulting Physician Cardiovascular Disease - Cardiology 02/19/23 04/19/24 Babak Taveras MD #2 [facility] [address] [place] [address] Consulting Physician Interventional Cardiology 03/01/23 Ellen Taveras APRN, RIM TURNING MACHINE OPERATOR #2 [facility], [address] [place] [address] Video Player Mechanic Advanced Practice Nurse 03/14/23 Haider Jimenez MD #[address] [place] [address] Consulting Physician Gastroenterology 06/21/22 Ellen Taveras APRN, RIM TURNING MACHINE OPERATOR #2 [facility] [place] [facility], [address] [place] [address] Nurse Practitioner Cardiology 12/31/23 documented as of this encounter
--- OUTSIDE RECORDS SUMMARY | 2024-08-12 06:21 | XMS_ITS | Encounter Summary ---
Author Organization [facility] Address [address] [place] [address] Phone Care Team Providers Care Oil Speculator Name Role Phone Joe Calabrese MD Primary Care Provider [phone] Danae Roberts October PAC Unavailable [phone] Gonzalo Villalpando MD Unavailable Babak Powres MD Unavailable [phone] Ellen Taveras APRN, ALLIGATOR SHEAR OPERATOR Unavailable + [phone] Haider Jimenez MD Unavailable [phone] Ellen Taveras APRN, ALLIGATOR SHEAR OPERATOR Unavailable + [phone] Reason for Visit * Reason Comments Medication Refill Encounter Details Date Type Department Care Team (Late st Contact Info) Description 08/11/2020 Refill [facility] Medical Group - Internal Medicine - [place] [address] [place] [address] Joe Calabrese MD [address] [facility] [place] [address] Medication Refill Social History Tobacco Use Types [...] 08/20/2024 2:45 PM CDT Office Visit [facility] Medical Group - Internal Medicine [place] [address] [place] [address] Joe Calabrese MD [address] [place] [address] 09/08/2024 1:30 PM CDT Office Visit [facility] - Cardiology - [place] [address] [place] [address] Ellen Taveras APRN, ALLIGATOR SHEAR OPERATOR #2 [facility], [address] [place] [address] documented as of this encounter Visit Diagnoses Not on filedocumented in this encounter Additional Health Concerns Assessment Noted Time PHQ-9 Depression Total Score: 0 05/18/19 21 10:00 AM SLIP MIXER documented as of this encounter Care Teams Oil Speculator Relationship Specialty Start Date End Date Joe Calabrese MD [address] [place] [address] PCP - General Internal Medicine 04/22/15 Danae Roberts Angella, PAC [address] [place] [address] Physician Armature Coil Winder Physician Armature Coil Winder 09/04/21 Gonzalo Villalpando MD [address] [place] [address] Consulting Physician Cardiovascular Disease - Cardiology 02/19/23 04/19/24 Babak Taveras MD #2 [facility] [address] [place] [address] Consulting Physician Interventional Cardiology 03/01/23 Ellen Taveras APRN, ALLIGATOR SHEAR OPERATOR #2 [facility], [address] [place] [address] Fiber Optic Central Office Installer Advanced Practice Nurse 03/14/23 Haider Jimenez MD #2 [place] [address] Consulting Physician Gastroenterology 06/21/22 Ellen Taveras APRN, ALLIGATOR SHEAR OPERATOR #2 [facility], [address] [place] [address] Nurse Practitioner Cardiology 12/31/23 documented as of this encounter
--- OUTSIDE RECORDS SUMMARY | 2024-08-12 06:21 | XMS_ITS | Encounter Summary ---
Author Organization [facility] Address [address] [place] [address] Phone Care Team Providers Care Social Science Instructor Name Role Phone Joe Calabrese MD Primary Care Provider [phone] Danae Roberts October PAC Unavailable [phone] Gonzalo Villalpando MD Unavailable Babak Powers MD Unavailable [phone] Ellen Taveras APRN, COLOR CONTROL OPERATOR Unavailable + [phone] Haider Jimenez MD Unavailable [phone] Ellen Taveras APRN, COLOR CONTROL OPERATOR Unavailable + [phone] Reason for Visit * Reason Comments Medication Refill Encounter Details Date Type Department Care Team ([facility] st Contact Info) Description 02/15/2020 Refill [facility] Medical Group - Internal Medicine - [place] [address] [place] [address] Joe Calabrese MD [address] [facility] [place] [address] Medication Refill Social History Tobacco Use Types [...] Description 08/20/2024 2:45 PM CDT Office Visit [facility] Medical [facility] - Internal Medicine [facility] [address] [place] [address] Joe Calabrese MD [address] [place] [address] 09/08/2024 1:30 PM CDT Office Visit [facility] Medical [facility] - Cardiology [facility] [address] [place] [address] Ellen Taveras APRN, COLOR CONTROL OPERATOR #2 [facility], [facility] [address] [place] [address] documented as of this encounter Visit Diagnoses Not on filedocumented in this encounter Care Teams Social Science Instructor Relationship Specialty Start Date End Date Joe Calabrese MD [address] [place] [address] PCP - General Internal Medicine 04/22/15 Danae Roberts, PAC [address] [place] [address] Physician Fitness Club Manager Physician Fitness Club Manager 09/04/21 Gonzalo Villalpando MD [address] [place] [address] Consulting Physician Cardiovascular Disease - Cardiology 02/19/23 04/19/24 Babak Taveras MD #2 [facility] [address] [place] [address] Consulting Physician Interventional Cardiology 03/01/23 Ellen Taveras APRN, COLOR CONTROL OPERATOR #2 [facility], [address] [place] [address] Water Systems Designer Advanced Practice Nurse 03/14/23 Haider Jimenez MD [address] [place] [address] Consulting Physician Gastroenterology 06/21/22 Ellen Taveras APRN, COLOR CONTROL OPERATOR #2 [facility], [address] [place] [address] Nurse Practitioner Cardiology 12/31/23 documented as of this encounter
--- OUTSIDE RECORDS SUMMARY | 2024-08-12 06:21 | XMS_ITS | Encounter Summary ---
Author Organization [facility] Address [address] [place] [address] Phone Care Team Providers Care Quarter Doper Name Role Phone Joe Calabrese MD Primary Care Provider [phone] Danae Roberts October PAC Unavailable [phone] Gonzalo Villalpando MD Unavailable Babak Powers MD Unavailable [phone] Ellen Taveras APRN, FOUNTAIN ATTENDANT Unavailable + [phone] Haider Jimenez MD Unavailable [phone] Ellen Taveras APRN, FOUNTAIN ATTENDANT Unavailable + [phone] Reason for Visit * Reason Comments Medication Refill Encounter Details Date Type Department Care Team ([facility] st Contact Info) Description 02/16/2020 Refill [facility] - Internal Medicine - [place] [address] [place] [address] Joe Calabrese MD [address] [facility] [place] [address] Medication Refill Social History Tobacco Use Types [...] Description 08/20/2024 2:45 PM CDT Office [facility] - Internal Medicine [facility] [address] [place] [address] Joe Calabrese MD [address] [place] [address] 09/08/2024 1:30 PM CDT [facility] - Cardiology - [place] [address] [place] [address] Ellen Taveras APRN, FOUNTAIN ATTENDANT #2 [facility], [facility] [address] [place] [address] documented as of this encounter Visit Diagnoses Not on filedocumented in this encounter Care Teams Quarter Doper Relationship Specialty Start Date End Date Joe Calabrese MD [address] [place] [address] PCP - General Internal Medicine 04/22/15 Danae Roberts Angella, PAC [address] [place] [address] Physician Draw Operator Physician Draw Operator 09/04/21 Gonzalo Villalpando MD [address] [place] [address] Consulting Physician Cardiovascular Disease - Cardiology 02/19/23 04/19/24 Babak Taveras MD #[address] [facility] [address] [place] [address] Consulting Physician Interventional Cardiology 03/01/23 Ellen Taveras APRN, FOUNTAIN ATTENDANT #2 [facility], [address] [place] [address] Workshop Manager Advanced Practice Nurse 03/14/23 Haider Jimenez MD #[address] [place] [address] Consulting Physician Gastroenterology 06/21/22 Ellen Taveras APRN, FOUNTAIN ATTENDANT #2 [facility] [place] [facility], [address] [place] [address] Nurse Practitioner Cardiology 12/31/23 documented as of this encounter
--- OUTSIDE RECORDS SUMMARY | 2024-08-12 06:21 | XMS_ITS | Clinical Summary ---
Author Organization [facility] Address [address] [place] [address] Phone Care Team Providers Care Hand Straightener Name Role Phone Joe Calabrese MD Primary Care Provider [phone] Danae Roberts October PAC Unavailable [phone] Babak Taveras MD Unavailable [phone] Ellen Tvaeras CAR FRAMER, COATING INSPECTOR Unavailable + [phone] Haider Jimenez MD Unavailable [phone] Ellen Taveras CAR FRAMER, COATING INSPECTOR Unavailable + [phone] Allergies Active Allergy Reactions Criticality Noted Date [...] [facility] - [place] [address] [place] [address] Joe Calabrese MD Medication Refill 07/07/2024 Refill [facility] [address] [place] [address] Joe Calabrese MD Medication Refill 06/25/2024 1:59 PM METAL SASH SETTER - 06/25/2024 11:59 PM METAL SASH SETTER Hospital Encounter [facility] Cardiology Services [address] [place] [address] Joe Calabrese MD Discharge Disposition: Discharged to home or Selfcare 06/25/2024 Results Follow-Up [facility] [address] [place] [address] Joe Calabrese MD 06/25/2024 Travel 06/13/2024 Refill [facility] [address] [place] [address] Joe Calabrese MD Medication Refill 05/21/2024 2:00 PM METAL SASH SETTER Office Visit [facility] [address] [place] [address] Joe Calabrese MD SOB (shortness of breath) [...] drink = 0.6 oz pur e alcohol) [facility] Utilities Answer Date Recorded In the past [...] re latives? Once a week 02/13/2024 Attends Zoroastrianism Services Not on file 02/12 Active Member [...] Score - Questions 1-9 0 01/0 01/2025 [facility] [place] of Occupat ional Health - Occupational Stress [...] place to sleep or slept in a mcfp (including now)? No 07/25/2023 Housing Stability Vital Sign Answer Robert e Recorded In the last 12 months, was t here a time when you were not able to pay the mortgage or rent on time? No 02/13/2024 Number of Times Moved in the Last Year Not on fi le 02/13/2024 At any time in the past 12 m [facility], were you homeless or living in a mcfp (including now)? No 02/13/2024 Sexually Active Control Partners Comments Not Currently Sex and Gender Information Value Date Recorded Sex Assigned at Not on file Legal Sex Male 10:00 PM CDT Gender Identity Not on file Sexual Orientation Not on file Last Filed Vital Signs Vital Sign Reading Time Taken Comments Blood Pressure 128/64 05/21/2024 1:31 PM METAL SASH SETTER Pulse 96 05/21/2024 1:31 PM METAL SASH SETTER Temperature 36.8 C (98.3 F) 05/21/2024 1:31 PM METAL SASH SETTER Respiratory Rate 12 02/13/2024 2:03 PM CDT Oxygen Saturation 95% 05/21/2024 1:31 PM METAL SASH SETTER Inhaled Oxygen Concentration - - Weight 118.4 kg (261 lb) 06/25/2024 2:39 PM METAL SASH SETTER Height 185.4 cm (6' 1 ) 06/25/2024 2:39 PM METAL SASH SETTER Body Mass Index 34.43 06/25/2024 2:39 PM METAL SASH SETTER Plan of Treatment Upcoming Encounters Date Type Department Care Team (Late st Contact Info) Description 08/20/2024 2:45 PM CDT Office Visit [facility] - Internal Medicine [facility] [address] [place] [address] Joe Calabrese MD [address] [facility] [place] [address] 09/08/2024 1:30 PM CDT Office Visit [facility] - Cardiology - [place] [address] [place] [id number] Ellen Taveras APRN, COATING INSPECTOR [address]2 [facility], [address] [place] [address] Health Maintenance Due Date Last Done Comments [...] COMPLT W CONT Routine 06/25/2024 2:57 PM METAL SASH SETTER SOB (shortness of breath) POCT GLYCOSYLATED HEMOGLOBIN Routine 02/13/2024 2:16 PM CDT Type 2 diabetes mellitus with complication, without long-term current use of insulin (HCC) CMP (COMPREHENSIVE METABOLIC PANEL) Routine 09/24/2023 12:39 PM CDT Type 2 diabetes mellitus with complication, without long-term current use of insulin (HCC) Essential (primary) hypertension Mixed hyperlipidemia DILATED EYE EXAM 04/24/2023 1 2:00 AM METAL SASH SETTER HEPATITIS PANEL ACUTE (AHP) Routine 11/18/2020 2:30 PM CDT Rectal varices Liver disease Nonalcoholic steatohepatitis (WOO) HM COLONOSCOPY Routine 08/16/2009 from Last 3 Months or Most Recently Relevant to Health Maintenance Results * ADULT TRANS THORACIC ECHO 2D COMPLT W CONT (06/25/2024 2:57 PM METAL SASH SETTER) AV Peak Grad mmHg 7.84 mmHg RESULTING [...] CARDIO N/A Ultrasound Narrative 06/25/2024 3:20 PM METAL SASH SETTER Transthoracic Echocardiography Report (TTE) Patient name KASIA GONSALVES JR. Berman 1945 Patient ID (I) [id number] Indications: Shortness of breath. Study Date06/25/2024 Technical [...] lbs. BMI (BSA) 34.44 kg/m^2 (2.41 m^2) Industry Segment Specialist Feroz Hawley Interpreting Darcy Ho Physician Felicity COX Physician Procedure Note Babak Taveras MD - 06/25/2024 Transthoracic Echocardiography Report (TTE) Patient name KASIA GONSALVES JR. GalanO.B. 1945 Patient ID (UPI) [id number] Indications: Shortness of breath. Study Date06/25/2024 Technical [...] lbs. BMI (BSA) 34.44 kg/m^2 (2.41 m^2) Industry Segment Specialist Feroz Hawley Interpreting Darcy Hilliard Referring NAHUM Ho Physician J Physician Joe Calabrese MD IMG ECHO ORDERABLES Edited Result - Final * POCT GLYCOSYLATED HEMOGLOBIN (02/13/2024 2:16 PM CDT) [facility] HGB-A1C 5.3 4 - 6 % 02/13/2024 2:16 PM CDT Joe Calabrese MD POINT OF CARE TESTING ([facility]) Final Result * (ABNORMAL) CMP (COMPREHENSIVE METABOLIC PANEL) (09/24/2023 12:39 PM CDT) [facility] SODIUM 140 136 - 145 mmol/L 09/24/2023 1:58 PM CDT [facility] POTASSIUM 4.5 3.5 - 5.1 mmol/L 09/24/2023 1:58 PM CDT [facility] CHLORIDE 108(H) 98 - 107 mmol/L 09/24/2023 1:58 PM CDT [facility] CO2, VENOUS 24 22 - 30 mmol/L 09/24/2023 1:58 PM CDT [facility] ANION GAP 12.5 <18.0 mmol/L 09/24/2023 1:58 PM CDT [facility] GLUCOSE 118(H) 70 - 99 mg/dL 09/24/2023 1:58 PM CDT [facility] BUN 19 8 - 26 mg/dL 09/24/2023 1:58 PM CDT [facility] CREATININE, BLOOD 0.81 0.70 - 1.30 mg/dL 09/24/2023 1:58 PM [facility] BUN/CREATININE RATIO 23(H) 12 - 20 ratio 09/24/2023 1:58 PM T [facility] TOTAL PROTEIN 7.3 6.3 - 8.2 g/dL 09/24/2023 1:58 PM T [facility] ALBUMIN 4.1 3.5 - 5.0 g/dL 09/24/2023 1:58 PM T [facility] A/G RATIO 1.3 1.0 - 2.2 09/24/2023 1:58 PM [facility] CALCIUM 8.8 8.7 - 10.5 mg/dL 09/24/2023 1:58 PM [facility] T BILI 1.6(H) 0.2 - 1.2 mg/dL 09/24/2023 1:58 PM [facility] SGOT (AST) 24 5 - 34 U/L 09/24/2023 1:58 PM [facility] Comment: Specimen is hemolyzed. In vitro hemolysis could affect results. Clinical correlation advised. SGPT (ALT) 16 0 - 55 U/L 09/24/2023 1:58 PM [facility] ALKALINE PHOSPHATASE 84 40 - 150 U/L 09/24/2023 1:58 PM [facility] IS THE PATIENT REQUIRED TO BE FASTING? No 09/24/2023 1:58 PM T [facility] GFR, ESTIMATED >60 >=60 09/24/2023 1:58 PM [facility] Comment: Creatinine Clearance is the preferred criteria for selecting drug dose adjustments in renally impaired patients. The GFR is provided as additional pertinent clinical information. GFR is reported in mL/min/1.73 sq m. Calculation based on the Chronic Kidney Disease Epidemiology Collaboration (CKD- EPI) equation refit without adjustment for race. GFR, EST. >60 >=60 024 1:58 PM CDT [facility] GFR, EST. NONAFRICAN >60 >=60 09/24/2023 1:58 PM CDT [facility] Blood Venipuncture / Unknown 09/24/2023 12:39 PM CDT 09/24/2023 1:37 PM CDT us Joe Calabrese MD CHEMISTRY ORDERABLES Final Result Performing Organization Address City/[facility]/ZIP Co de Phone Number [facility] [address] [place] [address] * HM DILATED EYE EXAM (04/24/2023 12:00 AM METAL SASH SETTER) 04/24/2023 us Provider Scan PROCEDURE/MINOR SURGICAL ORDERAB LES Final Result Performing Organization Address [facility] de Phone Number SCAN * HEPATITIS PANEL ACUTE (AHP) (11/18/2020 2:30 PM CDT) HEPATITIS A IGM ANTIBODY NON DETECTED NON DETECTED [place] [id number] 11/18/2020 11:34 PM CDT [facility] Comment: IGM Antibodies to HAV not detected. Does not exclude early acute or recovered HAV infection. HEP B CORE AB (IGM) NON DETECTED NON DETECTED [place] [id number] 11/18/2020 11:34 PM CDT [facility] Comment:IGM anti-HBC not det ected. Does not exclude the possibility of exposure to or infection with HBV. HEPATITIS B SURFACE ANTIGEN NON DETECTED NON DETECTED [facility] ARCH [id number] 11/18/2020 11:34 PM CDT [facility] Comment:A nonreactive test r esult does not exclude the possibility of exposure to or infection with Hepatitis B virus. A nonreactive test result in individuals with prior exposure to hepatitis B may be due to antigen levels below the detection limit of this assay or lack of antigen reactivity to the antibodies in this assay. hepatitis C antibody 0.10 <1 S/CO [facility] ARCH [id number] 11/18/2020 11:34 PM CDT [facility] Comment: Signal/Cutoff ratio < 0.79 is Nondetected Signal/Cutoff ratio 0.80-0.99 is Grayzone Signal/Cutoff ratio > 0.99 is Detected Supplemental assays are recommended if signal/cutoff ratio is >/=1.00. Signal/cutoff ratio result >/= 5.00 is 97% predictive of positivity for recombinant immunoblot assay (RIBA) and will be reported to the [place] Department of Public Health as required. Blood Venipuncture / Unknown 11/18/2020 2:30 PM CDT 11/18/2020 2:33 PM CDT us Danae Roberts PAC HEMATOLOGY ORDERABLES Fin al Result [facility] [address] [place] [address], [place] * COLONOSCOPY (08/16/2009) us Joe Calabrese MD PROCEDURE/MINOR SURGICAL OR DERABLES Final Result from Last 3 Months or Most Recently Relevant to Health Maintenance Insurance MEDICARE [facility] Care Teams Hand Straightener Relationship Specialty Start Date End Date Joe Calabrese MD [address] [place] [address] PCP - General Internal Medicine 04/22/15 Danae Roberts Angella, [facility] [address] [place] [address] Physician Accounting Teacher Physician Accounting Teacher 09/04/21 Babak Taveras MD #2 [facility] [address] [place] [address] Consulting Physician Interventional Cardiology 03/01/23 Ellen Taveras APRN, COATING INSPECTOR #2 [facility], [address] [place] [address] Screen Printing Machine Operator Helper Advanced Practice Nurse 03/14/23 Haider Jimenez MD [address] [place] [address] Consulting Physician Gastroenterology 06/21/22 Ellen Taveras APRN, COATING INSPECTOR #2 [facility], [address] [place] [address] Nurse Practitioner Cardiology 12/31/23
--- OUTSIDE RECORDS SUMMARY | 2024-08-12 06:21 | XMS_ITS | Encounter Summary ---
Author Organization [facility] Address [address] [place] [address] Phone Care Team Providers Care Mat Sewer Name Role Phone Joe Calabrese MD Primary Care Provider [phone] Armando Danae October PAC Unavailable [phone] Gonzalo Villalpando MD Unavailable Babak Powers MD Unavailable [phone] Ellen Taveras APRN, ASSISTANT PLANT CONTROLLER Unavailable + [phone] Haider Jimenez MD Unavailable [phone] Ellen Taveras APRN, ASSISTANT PLANT CONTROLLER Unavailable + [phone] Reason for Visit * Reason Comments Medication Refill Encounter Details Date Type Department Care Team ([facility] st Contact Info) Description 02/28/2021 Refill [facility] - Internal Medicine - [place] [address] [place] [address] Joe Calabrese MD [address] [place] [place] [address] Medication Refill Social History Tobacco Use Types [...] Description 08/20/2024 2:45 PM CDT Office Visit [facility] - Internal Medicine [place] [address] [place] [address] Joe Calabrese MD [address] [place] [address] 09/08/2024 1:30 PM CDT Office Visit [facility] Cardiology [facility] [address] [place] [address] Ellen Taveras APRN, ASSISTANT PLANT CONTROLLER #2 [facility], [facility] [address] [place] [address] documented as of this encounter Visit Diagnoses Not on filedocumented in this encounter Additional Health Concerns Assessment Noted Time PHQ-9 Depression Total Score: 0 05/18/19 21 10:00 AM COMPUTATIONAL SCIENCES PROFESSOR documented as of this encounter Care Teams Mat Sewer Relationship Specialty Start Date End Date Joe Calabrese MD [address] [place] [address] PCP - General Internal Medicine 04/22/15 Danae Roberts Angella, [facility] [address] [place] [address] Physician Container Coordinator Physician Container Coordinator 09/04/21 Gonzalo Villalpando MD [address] [place] [address] Consulting Physician Cardiovascular Disease - Cardiology 02/19/23 04/19/24 Babak Taveras MD #2 [facility] [address] [place] [address] Consulting Physician Interventional Cardiology 03/01/23 Ellen Taveras APRN, ASSISTANT PLANT CONTROLLER #2 [facility], [address] [place] [address] Mat Sewer Advanced Practice Nurse 03/14/23 Haider Jimenez MD #[address] [place] [address] Consulting Physician Gastroenterology 06/21/22 Ellen Taveras APRN, ASSISTANT PLANT CONTROLLER #2 [facility], [address] [place] [address] Nurse Practitioner Cardiology 12/31/23 documented as of this encounter
--- OUTSIDE RECORDS SUMMARY | 2024-08-12 06:21 | XMS_ITS | Encounter Summary ---
Author Organization [facility] Address [address] [place] [address] Phone Care Team Providers Care Air Conditioning Installer Name Role Phone Joe Calabrese MD Primary Care Provider [phone] Armando Danae October PAC Unavailable [phone] Gonzalo Villalpando MD Unavailable Babak Powers MD Unavailable [phone] Ellen Taveras APRN, SHRUB GROWER Unavailable + [phone] Haider Jimenez MD Unavailable [phone] Ellen Taveras APRN, SHRUB GROWER Unavailable + [phone] Reason for Visit * Reason Comments Medication Refill Encounter Details Date Type Department Care Team (Late st Contact Info) Description 03/16/2021 Refill [facility] Group - Internal Medicine - [place] [address] [place] [address] Joe Calabrese MD [address] [place] [address] Medication Refill Social History Tobacco Use Types [...] Description 08/20/2024 2:45 PM CDT Office Visit [facility] - Internal Medicine - [place] [address] [place] [address] Joe Calabrese MD [address] [place] [address] 09/08/2024 1:30 PM CDT [facility] Visit [facility] Card[facility] [address] [place] [address] Ellen Taveras APRN, SHRUB GROWER #2 [facility] L[facility] [address] [place] [address] documented as of this encounter Visit Diagnoses Not on filedocumented in this encounter Additional Health Concerns Assessment Noted Time PHQ-9 Depression Total Score: 0 05/18/19 21 10:00 AM TYPE COPY EXAMINER documented as of this encounter Care Teams Air Conditioning Installer Relationship Specialty Start Date End Date Joe Calabrese MD [address] [place] [address] PCP - General Internal Medicine 04/22/15 Danae Roberts [facility] [address] [place] [address] Physician Hop Trainer Physician Hop Trainer 09/04/21 Gonzalo Villalpando MD [address] [place] [address] Consulting Physician Cardiovascular Disease - Cardiology 02/19/23 04/19/24 Babak Taveras MD #[address] [facility] [address] [place] [address] Consulting Physician Interventional Cardiology 03/01/23 Ellen Taveras APRN, SHRUB GROWER #2 [facility], [facility] [address] [place] [address] Clinical Laboratory Aides Teacher Advanced Practice Nurse 03/14/23 Haider Jimenez MD #[address] [place] [address] Consulting Physician Gastroenterology 06/21/22 Ellen Taveras APRN, SHRUB GROWER #[address] [facility], [address] [place] [address] Nurse Practitioner Cardiology 12/31/23 documented as of this encounter
--- OUTSIDE RECORDS SUMMARY | 2024-08-12 06:21 | XMS_ITS | Encounter Summary ---
Author Organization [facility] Address [address] [place] [address] Phone Care Team Providers Care Sole Conditioner Name Role Phone Joe Calabrese MD Primary Care Provider [phone] Danae Roberts October PAC Unavailable [phone] Babak Taveras MD Unavailable [phone] Ellen Taveras CALL WORKER PERSON, HOGSHEAD COOPER Unavailable + [phone] Haider Jimenez MD Unavailable [phone] Ellen Taveras CALL WORKER PERSON, HOGSHEAD COOPER Unavailable + [phone] Encounter Details Date Type Department Care Team (Late st Contact Info) Description 06/25/2024 Results Follow-Up [facility] Medical [facility] - Internal Medicine [facility] [address] [place] [address] Joe Calabrese MD [address] [facility] [place] [address] Social History Tobacco Use Types Packs/Day Years Used Date Smoking Tobacco: Former Cigarettes 2 30 0 10/17/1969 - 10/18/1999 Passive Smoke Exposure: Past Smokeless Tobacco: Never Alcohol Use Standard Drinks/Week Comments Not Currently 0 (1 standard drink = 0.6 oz pur e alcohol) [facility] Utilities Answer Date Recorded In the past 12 months has [employer] electric, gas, oil, or water company threatened [...] re latives? Once a week 02/13/2024 Attends Anabaptism Services Not on file 02/12 Active Member [...] Total Score - Questions 1-9 0 01/2025 [facility] [place] of Occupat ional Health - Occupational Stress [...] place to sleep or slept in a half-way (including now)? No 07/25/2023 Housing Stability Vital [...] were you homeless or living in a half-way (including now)? No 02/13/2024 Sexually Active Control [...] Description 08/20/2024 2:45 PM CDT Office Visit [facility] Medical [facility] - Internal Medicine [facility] [address] [place] [address] Joe Calabrese MD [address] [place] [address] 09/08/2024 1:30 PM CDT Office Visit [facility] Card[facility] - [place] [address] [place] [id number] Ellen Taveras APRN, HOGSHEAD COOPER #2 [facility], [address] [place] [address] documented as of this encounter Visit Diagnoses Not on filedocumented in this encounter Additional Health Concerns Assessment Noted Time PHQ-9 Depression Total Score: 0 05/21/19 25 1:34 PM MEDICAL RESEARCHER documented as of this encounter Care Teams Sole Conditioner Relationship Specialty Start Date End Date Joe Calabrese MD [address] [place] [address] PCP - General Internal Medicine 04/22/15 Danae Roberts [facility] [address] [facility] [place] [address] Physician Qa Automation Engineer Physician Qa Automation Engineer 09/04/21 Babak Taveras MD #[address] [address] Consulting Physician Interventional Cardiology 03/01/23 Ellen Taveras APRN, HOGSHEAD COOPER #2 [facility], [address] [address] Structural Steel Trades Worker Advanced Practice Nurse 03/14/23 Haider Jimenez MD #2 [place] [address] Consulting Physician Gastroenterology 06/21/22 Ellen Taveras APRN, HOGSHEAD COOPER #2 [facility], [address] [address] Nurse Practitioner Cardiology 12/31/23 documented as of this encounter
--- OUTSIDE RECORDS SUMMARY | 2024-08-12 06:21 | XMS_ITS | Encounter Summary ---
Author Organization [facility] Address [address] [place] [address] Phone Care Team Providers Care Utility Bag Assembler Name Role Phone Joe Calabrese MD Primary Care Provider [phone] Armando Danae October PAC Unavailable [phone] Gonzalo Villalpando MD Unavailable Babak Powers MD Unavailable [phone] Ellen Taveras APRN, ACTIVITY MANAGER Unavailable + [phone] Haider Jimenez MD Unavailable [phone] Ellen Taveras APRN, ACTIVITY MANAGER Unavailable + [phone] Reason for Visit * Reason Comments Medication Refill Encounter Details Date Type Department Care Team (Late st Contact Info) Description 09/09/[address] [facility] Medical Group - Internal Medicine - [place] [address] [place] [address] Joe Calabrese MD [address] [place] [address] Medication Refill Social History Tobacco Use Types Packs/Day Years Used Date Smoking Tobacco: Former Cigarettes 2 30 0 10/17/1969 - 10/18/1999 Passive Smoke Exposure: Past Smokeless Tobacco: Never Alcohol Use Standard Drinks/Week Comments Not Currently 0 (1 standard drink = 0.6 oz pur e alcohol) [facility] Utilities Answer Date Recorded In the past 12 months has [employer], gas, oil, or water company threatened to [...] often do you attend chur ch or scientologist services? Never 07/25/2023 Do you belong to any clubs o r organizations such as adventism groups, unions, fraternal or athletic groups, or [...] Total Score - Questions 1-9 0 07/11 [facility] - Occupational Stress Questionnaire Answer Date Recorded [...] place to sleep or slept in a usp (including now)? No 07/25/2023 Sexually Active Control [...] Visit Joe Calabrese MD [facility] [place] 04/25/23 Office Visit Joe Calabrese MD [facility] [place] 01/24/23 Office Visit Joe Calabrese MD [facility] [place] 10/18/22 Office Visit Joe Calabrese MD [facility] [place] Showing recent visits within past 365 days and meeting all other requirements Future Appointments Date Type Provider Dept 10/31/23 Appointment Joe Calabrese MD [facility] [place] Showing future appointments within next 90 days and meeting all other requirements documented in this encounter Plan of Treatment Upcoming Encounters Date Type Department Care Team (Late st Contact Info) Description 08/20/2024 2:45 PM CDT Office Visit [facility] Medical Group - Internal Medicine [facility] [address] [place] [address] Joe Calabrese MD [address] [place] [address] 09/08/2024 1:30 PM CDT Office Visit [facility] Medical [facility] - Cardiology [facility] [address] [place] [address] Ellen Taveras APRN, ACTIVITY MANAGER #2 [facility], [address] [place] [address] documented as of this encounter Visit Diagnoses Not on filedocumented in this encounter Additional Health Concerns Assessment Noted Time PHQ-9 Depression Total Score: 0 07/25/19 1:49 PM CDT documented as of this encounter Care Teams Utility Bag Assembler Relationship Specialty Start Date End Date Joe Calabrese MD [address] [place] [address] PCP - General Internal Medicine 04/22/15 Danae Roberts Angella, [facility] [address] [facility] [place] [address] Physician Purchasing Buyer Physician Purchasing Buyer 09/04/21 Gonzalo Villalpando MD [address] [place] [address] Consulting Physician Cardiovascular Disease - Cardiology 02/19/23 04/19/24 Babak Taveras MD #2 [facility] [address] [place] [address] Consulting Physician Interventional Cardiology 03/01/23 Ellen Taveras APRN, ACTIVITY MANAGER #2 [facility], [facility] [address] [place] [address] Um Rn Advanced Practice Nurse 03/14/23 Haider Jimenez MD [address] [place] [address] Consulting Physician Gastroenterology 06/21/22 Ellen Taveras APRN, ACTIVITY MANAGER #2 [facility] LIS[facility]anny [facility], [address] [place] [address] Nurse Practitioner Cardiology 12/31/23 documented as of this encounter
--- OUTSIDE RECORDS SUMMARY | 2024-08-12 06:21 | XMS_ITS | Encounter Summary ---
Author Organization [facility] Address [address] [place] [address] Phone Care Team Providers Care Summer Nanny Name Role Phone Joe Calabrese MD Primary Care Provider [phone] Armando Danae October PAC Unavailable [phone] Gonzalo Villalpando MD Unavailable Babak Powers MD Unavailable [phone] Ellen Taveras APRN, CATH LAB RADIOLOGY TECHNICIAN Unavailable + [phone] Haider Jimenez MD Unavailable [phone] Ellen Taveras APRN, CATH LAB RADIOLOGY TECHNICIAN Unavailable + [phone] Reason for Visit * Reason Comments Medication Refill Encounter Details Date Type Department Care Team ([facility] st Contact Info) Description 08/31/2020 Refill [facility] Medical Group - Internal Medicine - [place] [address] [place] [address] Joe Calabrese MD [address] [place] [address] Medication Refill Social History Tobacco Use Types [...] [facility] [address] [place] [address] Joe Calabrese MD [address] [address] 09/08/2024 1:30 PM CDT Office Visit [facility] Medical [facility] - Cardiology [facility] [address] [place] [address] Ellen Taveras APRN, CATH LAB RADIOLOGY TECHNICIAN #2 [facility], [facility] [address] [place] [address] documented as of this encounter Visit Diagnoses Not on filedocumented in this encounter Additional Health Concerns Assessment Noted Time PHQ-9 Depression Total Score: 0 05/18/19 21 10:00 AM CARAMEL MAKER documented as of this encounter Care Teams Summer Nanny Relationship Specialty Start Date End Date Joe Calabrese MD [address] [place] [address] PCP - General Internal Medicine 04/22/15 Danae Roberts Angella, PAC [address] [facility] [address] Physician Naphthalene Operator Physician Naphthalene Operator 09/04/21 Gonzalo Villalpando MD [address] [place] [address] Consulting Physician Cardiovascular Disease - Cardiology 02/19/23 04/19/24 Babak Taveras MD #2 [facility] [address] [place] [address] Consulting Physician Interventional Cardiology 03/01/23 Ellen Taveras APRN, CATH LAB RADIOLOGY TECHNICIAN #2 [facility], [address] [address] E Commerce Architect Advanced Practice Nurse 03/14/23 Haider Jimenez MD #2 [place] [address] Consulting Physician Gastroenterology 06/21/22 Ellen Taveras APRN, CATH LAB RADIOLOGY TECHNICIAN #2 [facility], [address] [address] Nurse Practitioner Cardiology 12/31/23 documented as of this encounter
--- OUTSIDE RECORDS SUMMARY | 2024-08-12 06:21 | XMS_ITS | Encounter Summary ---
Author Organization [facility] Address [address] [place] [address] Phone Care Team Providers Care Computational Chemist Name Role Phone Joe Calabrese MD Primary Care Provider [phone] Armando Danae October PAC Unavailable [phone] Gonzalo Villalpando MD Unavailable Babak Powers MD Unavailable [phone] Ellen Taveras APRN, AIR BRUSH OPERATOR Unavailable + [phone] Haider Jimenez MD Unavailable [phone] Ellen Taveras APRN, AIR BRUSH OPERATOR Unavailable + [phone] Reason for Visit * Reason Comments Medication Refill Encounter Details Date Type Department Care Team (Late st Contact Info) Description 09/23/2023 Refill [facility] Medical Group - Internal Medicine - [place] [address] [place] [address] Joe Calabrese MD [address] [place] [address] Medication Refill Social History Tobacco Use Types Packs/Day Years Used Date Smoking Tobacco: Former Cigarettes 2 30 0 10/17/1969 - 10/18/1999 Passive Smoke Exposure: Past Smokeless Tobacco: Never Alcohol Use Standard Drinks/Week Comments Not Currently 0 (1 standard drink = 0.6 oz pur e alcohol) [facility] Utilities Answer Date Recorded In the past 12 months has [employer], gas, oil, or water company threatened to [...] often do you attend chur ch or denominational services? Never 07/25/2023 Do you belong to any clubs o r organizations such as gnosticism groups, unions, fraternal or athletic groups, or [...] Total Score - Questions 1-9 0 07/11 [facility] - Occupational Stress Questionnaire Answer Date Recorded [...] place to sleep or slept in a long term (including now)? No 07/25/2023 Sexually Active Control [...] AM CDT Medication([facility]) [facility] Refill Standing Order for Pediatricand [...] 07/25/23 Office Visit Joe Calabrese MD [facility] 04/25/23 Office Visit Joe Calabrese MD [facility] 01/24/23 Office Visit Joe Calabrese MD [facility] 10/18/22 Office Visit CalabreseJoe MD [facility] Showing recent visits within past 365 days and meeting all other requirements Future Appointments Date Type Provider Dept 10/31/23 Appointment Joe Calbarese MD [facility] Showing future appointments [...] Description 08/20/2024 2:45 PM CDT Office Visit [facility] Medical Group - Internal Medicine [facility] [address] [place] [phone] Joe Calabrese MD [address] [place] [address] 09/08/2024 1:30 PM CDT Office Visit [facility] - Cardiology [facility] [address] [place] [address] Ellen Taveras APRN, AIR BRUSH OPERATOR #2 [facility], [facility] [address] [place] [address] documented as of this encounter Visit Diagnoses Not on filedocumented in this encounter Additional Health Concerns Assessment Noted Time PHQ-9 Depression Total Score: 0 07/25/19 24 1:49 PM CDT documented as of this encounter Care Teams Computational Chemist Relationship Specialty Start Date End Date Joe Calabrese MD [address] [place] [address] PCP - General Internal Medicine 04/22/15 [facility] [address] [place] [address] Physician Early Interventionist Physician Early Interventionist 09/04/21 Gonzalo Villalpando MD [address] [place] [address] Consulting Physician Cardiovascular Disease - Cardiology 02/19/23 04/19/24 Babak Taveras MD #[address] [address] Consulting Physician Interventional Cardiology 03/01/23 Ellen Taveras APRN, AIR BRUSH OPERATOR #2 [facility], [facility] [address] [place] [address] Online Advertising Analyst Advanced Practice Nurse 03/14/23 Haider Jimenez MD #2 [place] [address] Consulting Physician Gastroenterology 06/21/22 Ellen Taveras APRN, AIR BRUSH OPERATOR #2 [facility], [address] [place] [address] Nurse Practitioner Cardiology 12/31/23 documented as of this encounter
--- OUTSIDE RECORDS SUMMARY | 2024-08-12 06:21 | XMS_ITS | Encounter Summary ---
Author Organization [facility] Address [address] [place] [address] Phone Care Team Providers Care Active Directory Architect Name Role Phone Joe Calabrese MD Primary Care Provider [phone] Armando Danae October PAC Unavailable [phone] Gonzalo Villalpando MD Unavailable Babak Powers MD Unavailable [phone] Ellen Taveras APRN, PET CARETAKER Unavailable + [phone] Haider Jimenez MD Unavailable [phone] Ellen Taveras APRN, PET CARETAKER Unavailable + [phone] Reason for Visit * Reason Comments Medication Refill Encounter Details Date Type Department Care Team ([facility] st Contact Info) Description 09/20/2020 Refill [facility] Medical Group - Internal Medicine - [place] [address] [place] [address] Joe Calabrese MD [address] [place] [address] Medication Refill Social History Tobacco Use Types [...] Description 08/20/2024 2:45 PM CDT Office Visit [facility] Medical Group - Internal Medicine [facility] [address] [place] [address] Joe Calabrese MD [address] [facility] [place] [address] 09/08/2024 1:30 PM CDT Office Visit [facility] Medical [facility] - Cardiology [facility] [address] [place] [address] Ellen Taveras APRN, PET CARETAKER #2 [facility], [facility] [address] [place] [address] documented as of this encounter Visit Diagnoses Not on filedocumented in this encounter Additional Health Concerns Assessment Noted Time PHQ-9 Depression Total Score: 0 05/18/19 21 10:00 AM TURNING MACHINE OPERATOR documented as of this encounter Care Teams Active Directory Architect Relationship Specialty Start Date End Date Joe Calabrese MD [address] [place] [address] PCP - General Internal Medicine 04/22/15 Danae Roberts Angella, PAC [address] [facility] [place] [address] Physician Map Compiler Physician Map Compiler 09/04/21 Gonzalo Villalpando MD [address] [place] [address] Consulting Physician Cardiovascular Disease - Cardiology 02/19/23 04/19/24 Babak Taveras MD #2 [facility] [address] [place] [address] Consulting Physician Interventional Cardiology 03/01/23 Ellen Taveras APRN, PET CARETAKER #2 [facility], [address] [address] Mint Wafer Depositor Advanced Practice Nurse 03/14/23 Haider Jimenez MD #2 [place] [address] Consulting Physician Gastroenterology 06/21/22 Ellen Taveras APRN, PET CARETAKER #2 [facility], [address] [address] Nurse Practitioner Cardiology 12/31/23 documented as of this encounter
[2024-08-12] MEDS: IPRATROPIUM 0.5 MG/ALBUTEROL SULFATE 2.5 MG AMPUL.NEB 3 ML INHALATION (07:15)
[2024-08-12] MEDS: methylPREDNISolone SOD SUCC 125 MG VIAL IV PUSH (07:19)
--- NOTE | 2024-08-12 07:28 | PC.NURSE ---
[facility] CALLED AND PT REMOVED FROM WAITING LIST PT ADMITTED TO [facility] 2ND FLOOR
--- NOTE | 2024-08-12 07:46 | PC.NURSE ---
PT STATES HIS BREATHING IS BETTER AFTER THE NEB TX
--- NOTE | 2024-08-12 07:50 | ADMGEN ---
This patient, Florentin Faulkner Jr., was admitted to 2nd Floor Room 208-2. Patient/family oriented to hospital policies and general routines including ID bracelet, bed and alarms, visiting hours, pain management, procedures, bathroom and other care routines, personal items, smoking policy, room service/diet, and visiting hours. Information on how to activate the Rapid Response Team has been discussed. Patient/Family are encouraged to report perceived risks to care and to ask questions if they do not understand what they are told or what they should do.
--- NOTE | 2024-08-12 11:21 | P.HP_ITS ---
H&P: HPI History of Present Illness Date/Time: 08/12/24 11:21 Chief Complaint: Shortness a breath/dyspnea Narrative: This is a 79-year-old male with a significant past medical history of AFib, hypertension, CHF, COPD, type 2 diabetes mellitus, hyperlipidemia, colon cancer, BPH, former smoker who presented to the hospital with complaints of shortness of breath/ dyspnea that happened overnight. Patient states that he got up to use the restroom and started feeling lightheaded with associated shortness a breath mainly with exertion. He denies any fever, chills, nausea, vomiting, diarrhea, abdominal pain, chest pain. He states that he has noticed that his shortness a breath has been going on for a few months mainly with exertion. Workup in the hospital included a chest x-ray which was negative. A chest CT showed moderate emphysema, chronic scarring or atelectasis at the lingula, minimal pericardial fluid. Initial labs showed a normal white blood cell count of 10.6, blood sugar 137, magnesium 1.8, total bili 1.1, troponin was negative, proBNP 1542. UA was obtained which showed trace leukocytes otherwise negative. Respiratory panel was negative for influenza a and B, RSV, COVID. Blood cultures were obtained and pending. EKG showed AFib with a rate of 85, QTC 424. Patient was given a dose of Rocephin and Zosyn , 10 mg IV push Lasix, DuoNeb breathing treatment, and loading dose of Solu-Medrol 125 mg IV push while in the ED. Review of Systems Review of Systems: All systems reviewed & are unremarkable except as noted in HPI and below PMFSH Past Medical History Medical History (Updated 08/12/24 @ 11:39 by April Herzog APRN) GERD (gastroesophageal reflux disease) BPH (benign prostatic hyperplasia) Colon cancer Type 2 diabetes mellitus COPD (chronic obstructive pulmonary disease) CHF (congestive heart failure) Hyperlipidemia Hypertension Atrial fibrillation Patient denies medical problems Social History Social History (Updated 08/12/24 @ 11:29 by April Herzog APRN) Smoking status: Former smoker Alcohol intake: never Substance use: never Do You Feel Safe in your Home?: Yes Lack of Transportation: No Lack of Food: Never True Current Housing: I Have Housing Concerned About Future Housing: No Difficulty Paying Gas/Electric Bills: No Difficulty Paying for Meds: No Currently Unemployed: No Education: Decline to Answer Difficulty w/ Childcare or Family Care: No Spiritual care concerns: No Meds Home Medications and Allergies Home Medications ?Medication ?Instructions ?Recorded ?Confirmed ?Type aspirin 81 mg tablet 81 mg PO DAILY 11/02/21 08/12/24 History albuterol sulfate 90 mcg/actuation 2 puff inhalation Q6H 08/12/24 08/12/24 History aerosol inhaler apixaban 5 mg tablet (Eliquis) 5 mg PO DAILY 08/12/24 08/12/24 History carvedilol 25 mg tablet 25 mg PO DAILY 08/12/24 08/12/24 History furosemide 20 mg tablet 20 mg PO DAILY 08/12/24 08/12/24 History gabapentin 300 mg capsule 300 mg PO DAILY 08/12/24 08/12/24 History glipizide 5 mg tablet 5 mg PO DAILY 08/12/24 08/12/24 History metformin 1,000 mg tablet 1,000 mg PO DAILY 08/12/24 08/12/24 History omeprazole 40 mg capsule,delayed 40 mg PO DAILY 08/12/24 08/12/24 History release pravastatin 40 mg tablet 40 mg PO DAILY 08/12/24 08/12/24 History sucralfate 1 gram tablet (Carafate) 1 g PO DAILY 08/12/24 08/12/24 History tamsulosin 0.4 mg capsule 0.4 mg PO DAILY 08/12/24 08/12/24 History Allergies Allergy/AdvReac Type Severity Reaction Status Date / Time duloxetine (From Cyalta) Allergy Intermediate Rash on Verified 08/12/24 04:27 face Vital Signs Vital Signs - 24 hr 08/12/24 04:11 08/12/24 04:11 08/12/24 04:25 Temperature 97.6 F Pulse Rate 85 85 85 Respiratory Rate 22 H 22 H Blood Pressure 153/92 H Pulse Oximetry 94 93 Oxygen Delivery Room Air Nasal Cannula Oxygen Flow Rate 2 08/12/24 04:33 08/12/24 04:45 08/12/24 05:00 Temperature Pulse Rate 91 92 86 Respiratory Rate 16 17 20 Blood Pressure Pulse Oximetry 100 Oxygen Delivery Nasal Cannula Nasal Cannula Nasal Cannula Oxygen Flow Rate 2 2 2 08/12/24 05:19 08/12/24 05:31 08/12/24 05:45 Temperature Pulse Rate 87 82 87 Respiratory Rate 17 Blood Pressure 122/96 H Pulse Oximetry 96 98 Oxygen Delivery Nasal Cannula Nasal Cannula Nasal Cannula Oxygen Flow Rate 2 2 2 08/12/24 05:46 08/12/24 06:00 08/12/24 06:02 Temperature Pulse Rate 86 89 85 Respiratory Rate 20 20 20 Blood Pressure 145/94 H 158/87 H Pulse Oximetry 97 98 96 Oxygen Delivery Oxygen Flow Rate 08/12/24 06:15 08/12/24 06:16 08/12/24 06:41 Temperature Pulse Rate 97 87 Respiratory Rate 21 H 19 Blood Pressure 147/113 H Pulse Oximetry 97 98 98 Oxygen Delivery Oxygen Flow Rate 08/12/24 06:45 08/12/24 07:00 08/12/24 07:15 Temperature Pulse Rate 92 97 88 Respiratory Rate 22 H 18 24 H Blood Pressure Pulse Oximetry 98 98 Oxygen Delivery Nasal Cannula Oxygen Flow Rate 2 2 08/12/24 07:15 08/12/24 07:27 08/12/24 07:30 Temperature Pulse Rate 98 88 92 Respiratory Rate 19 16 14 Blood Pressure Pulse Oximetry 98 Oxygen Delivery Oxygen Flow Rate 2 08/12/24 07:38 08/12/24 08:00 08/12/24 08:00 Temperature 97.8 F 97.2 F L Pulse Rate 85 92 85 Respiratory Rate 14 20 16 Blood Pressure 165/100 H 160/88 H 122/87 Pulse Oximetry 96 97 94 Oxygen Delivery Nasal Cannula Room Air Nasal Cannula Oxygen Flow Rate 2 2 Exam Narrative: General: In no acute distress, well nourished Head: atraumatic, no encephalopathy Eyes: PERRLA, sclera clear ENT: moist mucous membranes, nasal passages clear Neck: supple, no JVD, no adenopathy, trachea midline Cardiac: Normal S1 and S2. irregular rate and rhythm, AFib on monitor, No murmur, gallops or friction rubs, peripheral pulses intact. Respiratory: Lungs clear to auscultation, no adventitious lung sounds, currently on 2 L nasal cannula Gastrointestinal: soft, non-distended, non-tender, normoactive bowel sounds. : voiding without difficulty clear michael urine Extremities: moves all extremities well, no edema Skin: clean, dry, intact. No wounds or lesions. Neuro: Alert and oriented x4, cranial nerves intact, no neuro deficits. Psych: normal mood, normal affect, interactive H&P: Results Labs Labs: Short CBC 08/12/24 Range/Units 04:23 WBC 10.6 (4.8-10.8) K/mm3 Hgb 17.0 H (12.4-15.3) g/dL Hct 52.1 H (37.0-46.0) % Plt Count 169 (150-420) K/mm3 BMP 08/12/24 04:23 Sodium 136 Potassium 4.3 Chloride 103 Carbon Dioxide 25 BUN 19 H Creatinine 1.07 Glucose 137 H Calcium 8.7 Cardiac Enzymes 08/12/24 Range/Units 04:23 Troponin I 15.7 (0.00-60.4) ng/L Liver Function 08/12/24 Range/Units 04:23 Total Bilirubin 1.1 H (0.00-1.00) mg/dL AST 19 (15-37) U/L ALT 24 (16-63) U/L Alkaline Phosphatase 105 (46-116) U/L Albumin 3.6 (3.4-5.0) g/dL Urine 08/12/24 Range/Units 05:20 Urine Color Light yellow (Yellow) Urine Appearance Clear (Clear) Urine pH 6.0 (5.0-8.0) Ur Specific [place] 1.020 (1.010-1.020) Urine Protein Negative (Negative) Urine Glucose (UA) Negative (Negative) Imaging Chest x-ray: Radiologist's impression: Portable chest x-ray Comparison: None Clinical History: Shortness of breath Findings: Lungs are clear, without focal consolidation or pleural effusion. Cardiomediastinal silhouette is mildly prominent, possibly due to AP technique. Bones and soft tissues are unremarkable. Impression: Clear lungs. Reviewed, dictated and finalized at location . CT scan - chest: Radiologist's impression: CT Scan of the Chest without Contrast: Clinical Indication: Shortness of breath Technique: Contiguous sections were acquired throughout the chest without intravenous contrast. Dose reduction technique was used on this scan by utilizing automated exposure control and iterative reconstruction technique. The dose-length product (DLP) was 846.49 mGy-cm. Findings: There is no evidence of any significant mediastinal, hilar or axillary lymphadenopathy. Extensive coronary artery calcifications are present. Minimal pericardial fluid noted. No pleural effusions. Several scattered calcified granulomas are present. There is chronic scarring or atelectasis at the lingula. Moderate emphysema. Images through the upper abdomen reveal left adrenal adenoma. Lipoma is present subjacent to the left scapula. Degenerative spondylosis of the spine noted. Impression: Moderate emphysema. Chronic scarring or atelectasis at the lingula.. Minimal pericardial fluid. Reviewed, dictated and finalized at location . Assessment and Plan Assessment and plan (1) Acute exacerbation of chronic obstructive pulmonary disease: Code(s): J44.1 - Chronic obstructive pulmonary disease with (acute) exacerbation Status: Acute Assessment and Plan: * chest x-ray was negative * chest CTA showed moderate emphysema, chronic scarring or atelectasis at the lingula, minimal pericardial fluid * continue to wean O2 for sat greater than 92%, currently on 2 L nasal cannula * continue DuoNeb breathing treatments * continue Solu-Medrol 40 mg b.i.d. * will start azithromycin and continue for 5 days * will start Claritin and Singulair (2) BPH (benign prostatic hyperplasia): Code(s): N40.0 - Benign prostatic hyperplasia without lower urinary tract symptoms Status: Acute Assessment and Plan: * continue tamsulosin (3) Type 2 diabetes mellitus: Code(s): E11.9 - Type 2 diabetes mellitus without complications Status: Acute Assessment and Plan: * Blood sugar 137 * will order hemoglobin A1c * Accu checks AC/HS * high-dose SSI ordered * will hold glipizide and metformin * hypoglycemic protocol in place * Diabetic diet ordered (4) CHF (congestive heart failure): Code(s): I50.9 - Heart failure, unspecified Status: Acute Assessment and Plan: * continue Lasix 20 mg daily (5) Hyperlipidemia: Code(s): E78.5 - Hyperlipidemia, unspecified Status: Acute Assessment and Plan: * continue pravastatin (6) Hypertension: Code(s): I10 - Essential (primary) hypertension Status: Acute Assessment and Plan: * blood pressure ranging 122/87 to 165/100 * will start losartan 12.5 mg daily (7) Atrial fibrillation: Code(s): I48.91 - Unspecified atrial fibrillation Status: Acute Assessment and Plan: * continue carvedilol and Eliquis (8) GERD (gastroesophageal reflux disease): Code(s): K21.9 - Gastro-esophageal reflux disease without esophagitis Status: Acute Assessment and Plan: * continue Protonix and Carafate Quality VTE Prophylaxis VTE prophylaxis: pharmacologic ordered Hospitalist MIPS Advance Care Plan I have confirmed that the patient's Advanced Care Plan is present, code status is documented, or surrogate decision maker is listed in patient medical record.: Yes Medication Reconciliation I have utilized all available resources to obtain, update and review the patients current medications (includes all prescriptions, OTC, herbals, cannabis, and nutritional supplements).: Yes
[2024-08-12 11:41] LABS: Glucose Point of Care 209 mg/dl (65-105)
[2024-08-12] MEDS: LOSARTAN POTASSIUM 12.5 MG TABLET PO (11:56)
[2024-08-12] MEDS: INSULIN HUMAN LISPRO (*BKC) 1,000 UNITS/10 ML VIAL SUB-Q ×2 (11:57→17:10)
[2024-08-12 12:01] LABS: Hemoglobin A1C 5.8 % (<5.7)
[2024-08-12 12:09] LABS: Thyroid Stimulating Hormone 2.09 uIU/mL (0.36-3.74)
[2024-08-12 16:39] LABS: Glucose Point of Care 207 mg/dl (65-105)
[2024-08-12] MEDS: methylPREDNISolone SOD SUCC 40 MG VIAL IV PUSH (18:05)
[2024-08-12] MEDS: MONTELUKAST SODIUM 10 MG TABLET PO (21:09)
[2024-08-12] MEDS: APIXABAN 2.5 MG TABLET 5 MG PO (21:09)
[2024-08-12 21:12] LABS: Glucose Point of Care 264 mg/dl (65-105)
[2024-08-13] VITALS: BP 128/72; PULSE 82; RESP 18; TEMP 36.8; O2SAT 93
[2024-08-13 05:24] LABS: Basophils Absolute Auto 0.02 K/mm3 (0.00-0.10); Basophils Percent Auto 0.1 % (0.0-1.0); Eosinophils Absolute Auto 0.01 K/mm3 (0.02-0.50); Eosinophils Percent Auto 0.1 % (1.0-6.0); Hematocrit 45.9 % (37.0-46.0); Hemoglobin 15.6 g/dL (12.4-15.3); Immature Granulocyte Absolute 0.08 K/mm3 (0.00-0.00); Immature Granulocyte Percent A 0.6 % (0.0-0.0); Lymphocytes Absolute Auto 1.15 K/mm3 (1.10-4.50); Lymphocytes Percent Auto 8.4 % (18.0-42.0); Mean Corpuscular Hemoglobin 29.4 pg (27.0-31.0); Mean Corpuscular Volume 86.4 fL (78.0-102.0); Mean Platelet Volume 10.1 fl (8.7-11.0); Monocytes Absolute Auto 0.58 K/mm3 (0.10-0.90); Monocytes Percent Auto 4.2 % (2.0-11.0); Neutrophils Absolute Auto 11.92 K/mm3 (1.70-7.20); Neutrophils Percent Auto 86.6 % (50.0-70.0); Platelet Count Result 164 K/mm3 (150-420); Red Blood Count 5.31 M/mm3 (4.70-6.10); Red Cell Distribution Width 12.8 % (11.6-14.4); White Blood Count 13.8 K/mm3 (4.8-10.8)
[2024-08-13 05:40] LABS: Alanine Aminotransferase 17 U/L (16-63); Albumin Level 3.5 g/dL (3.4-5.0); Alkaline Phosphatase 87 U/L (46-116); Anion Gap 10 mmol/L (4-12); Aspartate Amino Transferase < 10 U/L (15-37); Bilirubin,Total 1.3 mg/dL (0.00-1.00); Blood Urea Nitrogen 20 mg/dL (7-18); Calcium 8.8 mg/dL (8.5-10.1); Carbon Dioxide 28 mmol/L (21-32); Chloride 101 mmol/L (98-108); Estimated CRCL calculation 85 ml/min; Estimated Glomerular Filt Rate > 60; Glucose 158 mg/dL (70-99); Osmolality Calculated 293 mOsm/kg (285-295); Sodium 139 mmol/L (136-145); Total Protein 6.3 g/dL (6.4-8.2)
[2024-08-13] MEDS: methylPREDNISolone SOD SUCC 40 MG VIAL IV PUSH (06:07)
[2024-08-13 07:32] LABS: Glucose Point of Care 152 mg/dl (65-105)
[2024-08-13 08:00] VITALS: BP 137/70; PULSE 79; RESP 18; TEMP 36.4; O2SAT 93
[2024-08-13] MEDS: GABAPENTIN 300 MG CAPSULE PO (08:37)
[2024-08-13] MEDS: PANTOPRAZOLE 40 MG TABLET PO (08:37)
[2024-08-13] MEDS: PRAVASTATIN SODIUM 20 MG TABLET 40 MG PO (08:37)
[2024-08-13] MEDS: APIXABAN 2.5 MG TABLET 5 MG PO (08:38)
[2024-08-13] MEDS: AZITHROMYCIN 250 MG TABLET 500 MG PO (08:38)
[2024-08-13] MEDS: FUROSEMIDE 20 MG TABLET PO (08:39)
[2024-08-13] MEDS: SUCRALFATE 1 GM TABLET PO (08:40)
[2024-08-13] MEDS: LOSARTAN POTASSIUM 12.5 MG TABLET PO (08:40)
[2024-08-13] MEDS: TAMSULOSIN HCL 0.4 MG CAPSULE PO (08:40)
[2024-08-13 08:41] VITALS: PULSE 81
[2024-08-13] MEDS: LORATADINE 10 MG TABLET PO (08:41)
[2024-08-13] MEDS: carvediloL 12.5 MG TABLET 25 MG PO (08:41)
--- NOTE | 2024-08-13 10:12 | P.DS_ITS ---
DS: Admitting Diagnosis Discharge Date 08/13/24 Admitting Diagnosis Acute exacerbation of COPD BPH type 2 diabetes mellitus CHF hyperlipidemia hypertension atrial fibrillation GERD DS: Discharge Diagnosis Discharge Diagnosis (1) Acute exacerbation of chronic obstructive pulmonary disease: Code(s): J44.1 - Chronic obstructive pulmonary disease with (acute) exacerbation Status: Acute (2) BPH (benign prostatic hyperplasia): Code(s): N40.0 - Benign prostatic hyperplasia without lower urinary tract symptoms Status: Acute (3) Type 2 diabetes mellitus: Code(s): E11.9 - Type 2 diabetes mellitus without complications Status: Acute (4) CHF (congestive heart failure): Code(s): I50.9 - Heart failure, unspecified Status: Acute (5) Hyperlipidemia: Code(s): E78.5 - Hyperlipidemia, unspecified Status: Acute (6) Hypertension: Code(s): I10 - Essential (primary) hypertension Status: Acute (7) Atrial fibrillation: Code(s): I48.91 - Unspecified atrial fibrillation Status: Acute (8) GERD (gastroesophageal reflux disease): Code(s): K21.9 - Gastro-esophageal reflux disease without esophagitis Status: Acute DS: Summary Hospital Course Reason for hospitalization: Acute exacerbation of COPD BPH type 2 diabetes mellitus CHF hyperlipidemia hypertension atrial fibrillation GERD Hospital Course: This is a 79-year-old male with a significant past medical history of AFib, hypertension, CHF, COPD, type 2 diabetes mellitus, hyperlipidemia, colon cancer, BPH, former smoker who presented to the hospital with complaints of shortness of breath/ dyspnea that happened overnight. Patient states that he got up to use the restroom and started feeling lightheaded with associated shortness a breath mainly with exertion. He denies any fever, chills, nausea, vomiting, diarrhea, abdominal pain, chest pain. He states that he has noticed that his shortness a breath has been going on for a few months mainly with exertion. Workup in the hospital included a chest x-ray which was negative. A chest CT showed moderate emphysema, chronic scarring or atelectasis at the lingula, minimal pericardial fluid. Initial labs showed a normal white blood cell count of 10.6, blood sugar 137, magnesium 1.8, total bili 1.1, troponin was negative, proBNP 1542. UA was obtained which showed trace leukocytes otherwise negative. Respiratory panel was negative for influenza a and B, RSV, COVID. Blood cultures were obtained and pending. EKG showed AFib with a rate of 85, QTC 424. Patient was given a dose of Rocephin and Zosyn , 10 mg IV push Lasix, DuoNeb breathing treatment, and loading dose of Solu-Medrol 125 mg IV push while in the ED. patient was weaned off the oxygen and lungs sound clear today. His vital signs are stable, he is afebrile. he is stable for discharge at this time. He is being prescribed steroid taper and azithromycin which will need to be completed. He has an albuterol inhaler at home and we added Symbicort to his regimen. We also added Claritin and Singulair which he will take daily. He was also given prescription for a nebulizer and albuterol breathing treatments for use at home with instructions. He will need to follow up with his primary care doctor in 1 week. I also provided pulmonology follow-up recommendation as he will likely need pulmonary function test to diagnose him with COPD. His blood pressure was noted to be high on admission and he was started on [place] 12.5 mg daily with improvement in his blood pressures. I discussed this with him and he will follow up with his primary care doctor regarding his blood pressure and new medication needs. final diagnosis: acute exacerbation of COPD , uncontrolled hypertension Status at Discharge Cognitive/behavioral status at discharge: alert oriented x4 Functional status at discharge: independent ambulation Overall status at discharge: patient is progressing back to baseline Time Spent with Patient Time attestation: Total time spent providing and/or coordinating discharge services: Time spent: Greater than 30 minutes Exam Narrative: General: In no acute distress, well nourished Cardiac: Normal S1 and S2. irregular rate and rhythm, AFib on monitor, No murmur, gallops or friction rubs, peripheral pulses intact. Respiratory: Lungs clear to auscultation, no adventitious lung sounds, currently on room air Gastrointestinal: soft, non-distended, non-tender, normoactive bowel sounds. : voiding without difficulty clear michael urine Neuro: Alert and oriented x4 DS: Data Data Completed and Pending Completed studies during hospitalization: chest CT chest x-ray Pending studies at discharge: none Labs on day of discharge: Labs from last 24 hours 08/13/24 08/13/24 08/12/24 07:26 05:14 21:06 WBC 13.8 H RBC 5.31 Hgb 15.6 H Hct 45.9 MCV 86.4 MCH 29.4 MCHC 34.0 RDW 12.8 Plt Count 164 MPV 10.1 Immature Gran % (Auto) 0.6 H Neut % (Auto) 86.6 H Lymph % (Auto) 8.4 L [place] % (Auto) 4.2 Eos % (Auto) 0.1 L Baso % (Auto) 0.1 Lymph # (Auto) 1.15 [place] # (Auto) 0.58 Eos # (Auto) 0.01 L Baso # (Auto) 0.02 Abs Immat Gran (auto) 0.08 H Absolute Neuts (auto) 11.92 H Absolute Nucleated RBC 0.00 Nucleated RBC % 0.0 Sodium 139 Potassium 4.0 Chloride 101 Carbon Dioxide 28 Anion Gap 10 BUN 20 H Creatinine 0.88 Estim Creat Clear Calc 85 Estimated GFR > 60 Glucose 158 H POC Capillary Glucose 152 H 264 H Hemoglobin A1c Calculated Osmolality 293 Calcium 8.8 Total Bilirubin 1.3 H AST < 10 L ALT 17 Alkaline Phosphatase 87 Total Protein 6.3 L Albumin 3.5 TSH 08/12/24 08/12/24 08/12/24 16:32 11:39 04:26 WBC RBC Hgb Hct MCV MCH MCHC RDW Plt Count MPV Immature Gran % (Auto) Neut % (Auto) Lymph % (Auto) [place] % (Auto) Eos % (Auto) Baso % (Auto) Lymph # (Auto) [place] # (Auto) Eos # (Auto) Baso # (Auto) Abs Immat Gran (auto) Absolute Neuts (auto) Absolute Nucleated RBC Nucleated RBC % Sodium Potassium Chloride Carbon Dioxide Anion Gap BUN Creatinine Estim Creat Clear Calc Estimated GFR Glucose POC Capillary Glucose 207 H 209 H Hemoglobin A1c 5.8 H Calculated Osmolality Calcium Total Bilirubin AST ALT Alkaline Phosphatase Total Protein Albumin TSH 2.09 Procedures/Treatments: none Discharge Plan Discharge Attending physician on discharge: Ilia Díaz Discharging Clinician: April Herzog Anticipated Discharge Date/Time: 08/13/24 09:50 Patient Disposition: Home, Self-Care Activity: as tolerated Diet: as tolerated and diabetic Discharge Instructions: * Finish all your antibiotics as directed even if your feeling better * finish all of your steroid even if your feeling better * Follow-up with pulmonology in 2 weeks. See your primary care doctor 1st as you may need a referral to see the digital asset specialist. * The digital asset specialist specializes in lung disorders and can do pulmonary function test in their office to diagnosed to with COPD and also help you manage your symptoms. * If you become short of breath or start to wheeze, start with your albuterol inhaler 1st. * I started you on Symbicort, take this twice a day as prescribed. Do not use t his medication more than prescribed. * if you are not getting relief from your albuterol inhaler I want you to use your nebulizer and give yourself a breathing treatment. If you are still not getting relief you can repeat one more breathing treatment. If you are not getting relief after the 2nd treatment then that is when you should present to your nearest ER for further evaluation. * Continue taking Singulair every night and Claritin every day as this will help prevent you from allergy related COPD exacerbation in the future * your blood pressures were noted to be high on admission and ranging 147/113 to 165/100. You were started on losartan 12.5 mg daily. Let your primary care doctor know of this change. Patient Instructions: Antibiotic Form, Loratadine (By mouth), Azithromycin (By mouth), Methylprednisolone (By mouth), Montelukast (By mouth), Fluticasone (Into the nose), COPD (Chronic Obstructive Pulmonary Disease) (GEN) Patient Language: Vincentian Stand Alone Forms: General Discharge Information Follow-up/Referrals: Guanakito,Joe David MD [Primary Care Provider] - 1 week Juan Hudson MD [Physician] - 2 weeks (PFT and management of COPD) Discharge Medications: New (DME) nebulizer and compressor Device See Rx Instructions .Route Qty: 1 0RF Rx Instructions: As directed (DME) nebulizer accessories Kit See Rx Instructions .Route Qty: 1 0RF Rx Instructions: As directed azithromycin [Zithromax] 250 mg Tablet 500 mg PO DAILY Qty: 6 0RF losartan 25 mg tablet 12.5 mg PO DAILY Qty: 15 0RF budesonide-formoterol [Symbicort] 80-4.5 mcg/actuation HFA aerosol inhaler 2 puff inhalation Q12H Qty: 10.2 0RF albuterol sulfate 1.25 mg/3 mL solution for nebulization 1.25 mg inhalation Q4H Qty: 75 0RF loratadine 10 mg Tablet 10 mg PO QAM Qty: 30 0RF montelukast [Singulair] 10 mg Tablet 10 mg PO HS Qty: 30 0RF losartan 25 mg tablet 12.5 mg PO DAILY Qty: 15 0RF methylprednisolone 4 mg tablets,dose pack See Rx Instructions .ROUTE .COMPLEX Qty: 21 0RF Rx Instructions: orally per package directions Continued carvedilol 25 mg tablet 25 mg PO DAILY pravastatin 40 mg tablet 40 mg PO DAILY omeprazole 40 mg capsule,delayed release(DR/EC) 40 mg PO DAILY tamsulosin 0.4 mg capsule 0.4 mg PO DAILY metformin 1,000 mg tablet 1,000 mg PO DAILY gabapentin 300 mg capsule 300 mg PO DAILY furosemide 20 mg tablet 20 mg PO DAILY glipizide 5 mg tablet 5 mg PO DAILY Eliquis 5 mg tablet 5 mg PO Q12H sucralfate [Carafate] 1 gram tablet 1 g PO DAILY Adult Aspirin 81 mg Tablet 81 mg PO DAILY albuterol sulfate 90 mcg/actuation HFA aerosol inhaler 2 puff INHALATION Q6H Qty: 1 0RF Date of admission: 08/12/24 06:56 Primary Care Provider: Guanakito,Joe David Admitting Provider: Ilia Díaz Attending physician on admission: April Herzog Condition: Improved Quality VTE Prophylaxis VTE prophylaxis: pharmacologic ordered Hospitalist MIPS Heart Failure (Exclusion) Patient has history of Heart Transplant or Left Ventricular Assistive Device?: No IF YES, STOP HERE Heart Failure (Qualifier) Patient has current or prior documentation of LVEF less than or equal to 40%, or mod/servere depressed LVSF?: No IF NO, STOP HERE
--- NOTE | 2024-08-13 10:28 | PC.NURSE ---
IV site and Telemetry discontinued in anticipation of discharge.
--- NOTE | 2024-08-13 11:00 | PC.NURSE ---
Discharge instructions given to patient and patient voiced understanding. Patient left unit in w/c accompanied by nurse. Personal belongings gathered by patient and sent home with patient. Patient left hospital grounds in privately owned vehicle.
--- NOTE | 2024-08-13 14:17 | PC.NURSE ---
Voice order received per MARINE ENGINE DRIVER to send RX with written diagnosis of COPD to [facility]. Fax # [phone].
--- NOTE | 2024-08-17 13:24 | PC.NURSE ---
Called left message for discharge call back, request call back to facility.
== END 2024-08-13 11:00 | disposition home or self-care (01) ==
LOC: CHSED 06:59 → CHS2ND 07:18
PROVIDERS: Admitting Provider Internal Medicine; Emergency Provider Emergency Medicine; PCP Internal Medicine; Visit Provider Nurse Practitioner Acute Care
DX: J44.1 Chronic obstructive pulmonary disease with (acute) exacerbation (principal); J43.9 Emphysema, unspecified; I48.91 Unspecified atrial fibrillation; N40.0 Benign prostatic hyperplasia without lower urinary tract symptoms; E11.9 Type 2 diabetes mellitus without complications; I11.0 Hypertensive heart disease with heart failure; I50.9 Heart failure, unspecified; E78.5 Hyperlipidemia, unspecified; K21.9 Gastro-esophageal reflux disease without esophagitis; Z20.822 Contact with and (suspected) exposure to COVID-19; Z79.01 Long term (current) use of anticoagulants; Z79.82 Long term (current) use of aspirin; Z79.51 Long term (current) use of inhaled steroids; Z79.84 Long term (current) use of oral hypoglycemic drugs; Z79.899 Other long term (current) drug therapy; Z85.038 Personal history of other malignant neoplasm of large intestine; Z87.891 Personal history of nicotine dependence
CPT/HCPCS: 36415; 71045; 71250; 80053; 81001; 82948; 83036; 83605; 83735; 83880; 84443; 84484; 85025; 85380; 85610; 85730; 87040; 87637; 93005; 94640; 96365; 96375; 96376; 99285; A9270; G0378; J0696; J1815; J2919